=== PATIENT | female | born 1930 | race Caucasian/White ===

== ENCOUNTER 2017-02-20 12:35 | Inpatient (IN) ==
[2017-02-20] MEDS ORDERED: ZOFRAN IV ONE (13:09)
[2017-02-20] MEDS ORDERED: NS 1,000 ML IV ONE (13:09)
[2017-02-20 13:19] LABS: MANUAL DIFF NEEDED? NO
[2017-02-20 13:22] LABS: BASO% 0.5 % (0.0-0.8); EOS# 0.13 X1000 (0.0-0.7); EOS% 1.6 % (0.0-10.0); HEMATOCRIT 33.4 % (37.0-47.0); HEMOGLOBIN 10.4 g/dL (12.0-16.0); IMM GRAN# 0.03 X1000 (0.0-0.04); IMM GRAN% 0.4 % (0.0-0.5); LYMPH% 26.5 % (20.5-51.1); MCHC 31.1 g/dL (33-37); MCV 89.8 FL (81-99); MONO% 9.6 % (1.7-9.3); MPV 12.3 FL (7.4-10.4); NEUT% 61.4 % (42.2-75.2); PLT 245 X1000 (130-400); RBC 3.72 XMIL (4.2-5.4)
[2017-02-20 13:44] LABS: ALBUMIN 4.1 g/dL (3.5-5.0); CALCIUM 9.5 mg/dL (8.8-10.2); MAGNESIUM 2.3 mg/dL (1.5-2.7); POTASSIUM 3.7 mmol/L (3.5-5.1); TOTAL BILIRUBIN 0.35 mg/dL (0.20-1.00); TOTAL PROTEIN 7.3 g/dL (6.3-8.3)
--- NOTE | 2017-02-20 14:46 | Diag Imaging Result Doc PS360 ---
EXAM: ABDOMEN/PELVIS W/O CONTRAST INDICATION: N/V with abd pain COMPARISON: None. FINDINGS: There is subsegmental atelectasis and/or scarring at the lung bases. There is cardiomegaly. There are multiple calcified granulomata in the liver and the spleen. There has been a previous cholecystectomy. There is intrahepatic and extrahepatic biliary dilatation with the common bile duct measuring up to 1.3 cm in diameter. At least in part, this is due to age and postcholecystectomy status. Although questionable, there is a potential low dense mass near the head of the pancreas, perhaps arising from the uncinate process measuring up to 1.6 cm axially. Further evaluation is limited with no IV contrast. There are couple small cyst density foci arising from the left kidney. There is no hydronephrosis. There is impacted stool in the rectum. The diameter of the impacted rectum measures up to 7 cm. There is no evidence of bowel obstruction. There is uncomplicated diverticulosis coli. There has been a previous hysterectomy. There is extensive aortoiliac atherosclerotic calcification and atherosclerotic calcification involving the major branches of the aorta. Otherwise, no focal inflammatory changes, free abdominal gas, or free fluid is appreciated. The remainder of the solid viscera of the abdomen and pelvis and the remainder of the GI tract are essentially unremarkable. There are advanced degenerative changes throughout the spine. There has been a previous lumbar fusion. IMPRESSION: 1.Rectal fecal impaction. 2.Questionable low dense masslike focus near the head of the pancreas as described. 3.Intrahepatic and extrahepatic biliary dilatation, at least in part, this is due to postcholecystectomy status and age. It is difficult to completely exclude a component of obstruction. 4.Other incidental/nonacute findings detailed above. Electronically signed by Tong Lares 02/20/2017 2:44 PM
--- NOTE | 2017-02-20 15:35 | PROVIDER DOCUMENTATION ---
This chart was entered by Smitha Costello Scribe, acting as scribe for Lane Gomez MD. HPI-General Adult - General Chief Complaint: Weakness Stated Complaint: N/V WEAKNESS Time Seen by Provider: 02/20/17 12:42 Source: patient Allergies/Adverse Reactions: Patient Allergies Allergy/AdvReac Type Severity Reaction Status Date / Time acetaminophen [From Tylenol] Allergy Unknown Verified 01/13/14 11:14 meperidine HCl * Allergy Unknown Verified 01/13/14 11:14 [From Demerol] Penicillins Allergy Unknown Verified 01/13/14 11:15 simvastatin [From Zocor] Allergy Unknown Verified 01/13/14 11:16 Home Medications: Home Medication List Medication Instructions Recorded Confirmed Last Taken Type ATORVAstatin [Lipitor] 10 mg PO QHS 01/13/14 01/13/14 01/12/14 21:00 History Alprazolam [Xanax] 0.25 mg PO TID 01/13/14 01/13/14 01/13/14 06:00 History Aspirin [Aspirin EC] 81 mg PO DAILY 01/13/14 01/13/14 01/11/14 06:00 History Ca Cmb No.1/Vit D3/B-6/FA/B12 1 tab PO DAILY 01/13/14 01/13/14 01/13/14 06:00 History [Vitamin D3 1,000 Unit Tablet] Celecoxib [Celebrex] 100 mg PO DAILY 01/13/14 01/13/14 01/13/14 06:00 History Clopidogrel Bisulfate [Plavix] 75 mg PO DAILY 01/13/14 01/13/14 01/11/14 06:00 History Ezetimibe [Zetia] 10 mg PO DAILY 01/13/14 01/13/14 01/13/14 06:00 History Furosemide [Lasix] 40 mg PO QPM 01/13/14 01/13/14 01/12/14 17:00 History Furosemide [Lasix] 80 mg PO QAM 01/13/14 01/13/14 01/13/14 06:00 History Iron Fum & Ps Cmp/Vit C & B 1 cap PO DAILY 01/13/14 01/13/14 01/13/14 06:00 History [Integra Capsule] Lactulose 10 gm PO DAILY 05/05/2101/13/14 01/13/14 06:00 History Metoprolol Tartrate 25 mg PO BID 01/13/14 01/13/14 01/13/14 06:00 History Naproxen 500 mg PO DAILY 01/13/14 01/13/14 01/13/14 06:00 History Olmesartan/Hydrochlorothiazide 1 each PO PRN PRN 01/13/14 01/13/14 01/13/14 06: 00 History [Benicar Hct 40-25 mg Tablet] Palmer-3 Fatty Acids [Fish Oil] 1,000 mg PO DAILY 01/13/14 01/13/14 01/13/14 06: 00 History Pioglitazone [Actos] 30 mg PO DAILY 01/13/14 01/13/14 01/13/14 06:00 History Sitagliptin Phosphate [Januvia] 100 mg PO DAILY 01/13/14 01/13/14 01/13/14 06: 00 History - History of Present Illness -Gen Adult Nature of Presenting Problems: 86 y/o F presents to ED cc of N/V weakness. Pt states she started vomiting today. Pt reports having neck/back pain. Pt states her abd pain is a sore feeling. Pt denies CP. Pt is alert. Location of Pain/Injury: reports: generalized Pain Radiation: reports: no radiation Quality of Pain: reports: other (soreness) Severity: reports: mild Onset/Duration: reports: just prior to arrival Timing: reports: still present Context/Activities at Onset: reports: light activity Modifying Factors: improves with: nothing Associated Symptoms: reports: nausea, vomiting, other (abd soreness). denies: chest pain, diarrhea, fever/chills, shortness of breath Similar Symptoms Previously?: No Recently seen or treated by another doctor?: No Review of Systems - Adult - REVIEW OF SYSTEMS - ADULT Constitutional: denies: chills, fever Ears, Nose, Mouth & Throat: denies: ear pain, nose pain, loose teeth, throat pain Cardiovascular: denies: chest pain, palpitations Respiratory: denies: cough, pleurisy, shortness of breath, wheezing Gastrointestinal: reports: abdominal pain (soreness), nausea, vomiting. denies : diarrhea Musculoskeletal: denies: bone pain, back pain, joint swelling, muscle aches Neurological: denies: dizziness/vertigo, headache/migraines, seizure, slurred speech Past History - Adult - PAST MEDICAL HISTORY-ADULT Review of Records: reports: Old Records Reviewed, Nursing Assessment Review Cardiovascular: reports: HTN Endocrine/Immune: reports: Diabetes - PRIOR SURGERIES/PROCEDURES Surgical/Procedure History: reports: appendectomy - IMMUNIZATION STATUS Childhood Immunizations: See Nurse Assessment Flu Vaccine: See Nurse Assessment - SOCIAL HISTORY Smoking: denies, non-smoker Substance Use: none/never, denies Physical Exam-General - PHYSICAL EXAM-ADULT Initial Vital Signs Reviewed: Yes - CONSTITUTIONAL General Appearance: alert, no apparent distress - EYES Eyes: PERRL/EOMI, pink conjunctivae - HEAD, EARS, NOSE, MOUTH & THROAT HENMT: moist mucous membranes, normal ENT inspection - NECK Neck: non-tender, full range of motion - RESPIRATORY Respiratory: chest non-tender, lungs clear, normal breath sounds - CARDIOVASCULAR Cardiovascular: normal peripheral pulses, regular rate, rhythm, no edema - GASTROINTESTINAL (ABDOMEN) Abdominal Exam: normal bowel sounds, non tender, soft - MUSCULOSKELETAL Back Exam: normal inspection, no CVA tenderness, no vertebral tenderness Extremity: normal range of motion, non-tender - SKIN Integumentary: normal color, normal turgor, warm/dry - NEUROLOGIC Neurologic: grossly normal, no motor/sensory deficits - PSYCHIATRIC Psych/Mental Status: oriented x 3 Progress - PLAN OF CARE/RESULTS Progress/Plan/Lab Results: Vital Signs - 8 hr 02/20/17 12:51 Temperature 97.9 F Pulse Rate 65 Respiratory Rate 18 Blood Pressure 116/58 O2 Sat by Pulse Oximetry 99 Laboratory Results - last 24 hr 02/20/17 02/20/17 02/20/17 12:44 12:44 12:44 WBC 8.31 RBC 3.72 L Hgb 10.4 L Hct 33.4 L MCV 89.8 MCH 28.0 MCHC 31.1 L RDW Std Deviation 13.7 Plt Count 245 MPV 12.3 H Immature Gran % (Auto) 0.4 Neut % (Auto) 61.4 Lymph % (Auto) 26.5 Arroyo % (Auto) 9.6 H Eos % (Auto) 1.6 Baso % (Auto) 0.5 Immature Gran # (Auto) 0.03 Neut # (Auto) 5.11 Lymph # (Auto) 2.20 Arroyo # (Auto) 0.80 H Eos # (Auto) 0.13 Baso # (Auto) 0.04 Sodium 137 Potassium 3.7 Chloride 92 L Carbon Dioxide 27 Anion Gap 18 BUN 52 H Creatinine 2.6 H Estimated GFR/1.73 m2 17 BUN/Creatinine Ratio 20 Glucose 236 H Calculated Osmolality 296 Calcium 9.5 Magnesium 2.3 Total Bilirubin 0.35 AST 26 ALT 15 Alkaline Phosphatase 102 Troponin T Emv-P-Nhbsozyfjhf Pept 1571 H Total Protein 7.3 Albumin 4.1 Globulin 3.2 Albumin/Globulin Ratio 1.3 Amylase 115 Lipase 127 H 02/20/17 12:44 WBC RBC Hgb Hct MCV MCH MCHC RDW Std Deviation Plt Count MPV Immature Gran % (Auto) Neut % (Auto) Lymph % (Auto) Arroyo % (Auto) Eos % (Auto) Baso % (Auto) Immature Gran # (Auto) Neut # (Auto) Lymph # (Auto) Arroyo # (Auto) Eos # (Auto) Baso # (Auto) Sodium Potassium Chloride Carbon Dioxide Anion Gap BUN Creatinine Estimated GFR/1.73 m2 BUN/Creatinine Ratio Glucose Calculated Osmolality Calcium Magnesium Total Bilirubin AST ALT Alkaline Phosphatase Troponin T 0.011 Qum-S-Uscfcbdpoiy Pept Total Protein Albumin Globulin Albumin/Globulin Ratio Amylase Lipase Orders Category Date Time Status Saline Loc DIRECTED Care 02/20/17 13:09 Active NPO Diet 02/20/17 13:09 Active CHEST-PORTABLE [RAD] Stat Exams 02/20/17 13:[address] ABD/PELVIS W/ IV CONT ONLY [CT] Stat Exams 02/20/17 13:13 Ordered AMYLASE [CHEM] Stat Lab 02/20/17 12:44 Completed CBC WITH ELECTRONIC DIFF [HEME] Stat Lab 02/20/17 12:44 Completed COMPREHENSIVE METABOLIC PANEL [CHEM] Stat Lab 02/20/17 12:44 Completed LIPASE [CHEM] Stat Lab 02/20/17 12:44 Completed MAGNESIUM [CHEM] Stat Lab 02/20/17 12:44 Completed PRO B-NATRIURETIC PEPTIDE Stat Lab 02/20/17 12:44 Completed TROPONIN T Stat Lab 02/20/17 12:44 Completed URINALYSIS W/POSS RFLX CULT-1 [URINALYSIS] Stat Lab 02/20/17 13:09 Uncollected 0.9% Sodium Chloride Inj [Ns] 1,000 ml Med 02/20/17 13:09 Active IV 999 mls/hr Ondansetron [Zofran] Med 02/20/17 13:09 Discontinued 4 mg IV NOW ONE PLAN: LABS, CHEST, NAUSEA, MONITOR PT Result Diagrams: 02/20/17 12:44 02/20/17 12:44 - XRAY 1 XRAY: Bilateral XRAY Study: Chest Impression: Normal XRAY Interpretation: nad - (er doc) - CT/MRI 1 CT Study: Abdomen, Pelvis Impression: Abnormal (Rectal Impaction. Questionable low dense masslike focus near the head of the pancreas as described. Intrhepatic and extrahepatic biliary dislocation, at least in part , this is due to postcholecystectomy status and age. It is difficult to completly exclude a component of obsturction. Other incidental/nonacute findings detailed aboved.) CT Results: see impression-(radiologist) - CONSULTS/PCP/HOSPITALIST Notification #1 *Consult/PCP/Hospitalist*: Konstantin/Hospitalist Time Discussed: 15:34 Consult Disposition: Will see in ED, Admit Departure - Departure Date of Disposition Decision: 02/20/17 Time of Disposition Decision: 15:34 DIAGNOSIS: Abdominal pain, Renal failure, Pancreatic mass Disposition: ADMITTED INPATIENT 09 Certified Medical Emergency: Emergent Condition: Stable Referrals and Follow-Ups: Liu Baldwin MD [Primary Care Provider] - - Critical Care Note This patient required my direct & personal management of CC.: No This chart was documented by the indicated scribe, (Smitha Costello Scribe) and accurately reflects the services I performed and decisions made by me, Lane Gomez MD, as attested by the provider's signature.
--- NOTE | 2017-02-20 16:03 | Diag Imaging Result Doc PS360 ---
EXAM: CHEST-PORTABLE INDICATION: cough TECHNIQUE: One view COMPARISON: None. FINDINGS: There is biapical chronic appearing pleural thickening. The lungs are grossly clear, otherwise. There is mild elevation of the right hemidiaphragm. There is no discrete pleural fluid collection or pneumothorax. There is cardiomegaly. There is a left-sided transvenous pacemaker with the leads in the expected position. The central vasculature is unremarkable. IMPRESSION: Cardiomegaly and biapical mild chronic appearing pleural thickening. No definite acute pathology by plain radiograph. Electronically signed by Tong Lares 02/20/2017 4:01 PM
[2017-02-20 16:14] LABS: URINE SOURCE CLEAN CATCH
[2017-02-20 16:26] LABS: BILIRUBIN URINE NEGATIVE (NEGATIVE); BLOOD URINE TRACE-INTACT (NEGATIVE); CLARITY CLEAR (CLEAR); COLOR YELLOW; GLUCOSE URINE NEGATIVE (NEGATIVE); LEUKOCYTES URINE MODERATE (NEGATIVE); NITRITE URINE NEGATIVE (NEGATIVE); PROTEIN URINE 100 mg/dL (NEGATIVE); SP GRAVITY URINE 1.015; UROBILINOGEN URINE 0.2 EU/dL (0.2-1.0)
[2017-02-20 16:43] LABS: URINE EPITHELIAL CELLS <10 /HPF (<10); URINE RBC <10 /HPF (<10); URINE WBC <10 /HPF (<10)
--- NOTE | 2017-02-20 18:30 | HISTORY AND PHYSICAL ---
TURBINATED BONE GRINDER: Dr. Alicea in [place], [place]. PCP: Dr. Baldwin in [place], [place]. CHIEF COMPLAINT: Abdominal pain. HISTORY OF PRESENT ILLNESS: Mrs. Arias is a pleasant 86-year-old female with multiple medical problems who presents to the ER today with fairly acute onset of abdominal pain, nausea, and vomiting that began around noon. The patient describes acute left upper quadrant pain followed by multiple episodes of vomiting which prompted an ER visit. The pain is described as sharp and constant, radiates to the back. She denies any hematemesis. She denies diarrhea. She denies hematochezia or melena. She denies fever, chills cough or congestion. She denies any unintentional weight loss. When she came to the ER she had a CT of the abdomen and pelvis done which showed rectal fecal impaction, questionable low dense masslike focus near the head of the pancreas. There was also intrahepatic and extrahepatic biliary dilatation which is at least in part due to postcholecystectomy status and age. However it was difficult to exclude a component of obstruction. Laboratory data was obtained . She is mildly anemic with renal insufficiency and she had a lipase of 127. She is now going to be admitted for further treatment and evaluation. PAST MEDICAL HISTORY: 1. CKD stage [address] Couch currently not on hemodialysis. 2. Anemia of chronic disease. 3. Hypertension. 4. Left carotid bruit. 5. Peripheral vascular disease. 6. Diastolic dysfunction. 7. Diabetes mellitus. 8. Hyperlipidemia. 9. Renal artery stenosis status post renal artery stenting. 10. Carotid artery disease status post carotid endarterectomy. 11. Aortic stenosis. 12. Status post pacemaker placement arrhythmia unknown. SURGICAL HISTORY: She has had a pacemaker placement, renal artery stenting, cardiac catheterization, carotid endarterectomy on the right, appendectomy, lumbar laminectomy, cholecystectomy, cataract extraction, insertion of superficial femoral artery stent. SOCIAL HISTORY: Patient denies tobacco, alcohol or drug use. She is , lives with family who is at the bedside. FAMILY HISTORY: Noncontributory. REVIEW OF SYSTEMS: Fourteen-point review of systems obtained and found to be negative with the exception of the HPI. ALLERGIES: Meperidine, penicillin and simvastatin. CURRENT MEDICATIONS: Are being compiled. PHYSICAL EXAMINATION: VITAL SIGNS: Blood pressure is 109/43, heart rate 63, respiratory rate 20, O2 saturation 95% on room air. GENERAL: This is a pleasant elderly female lying in hospital bed. No acute distress. NEUROLOGIC: The patient is disoriented but follows commands without focal deficits. HEENT: Head is atraumatic and normocephalic. Pupils are equal, round, and reactive to light. Oral mucosa is a bit dry. Trachea is midline. No JVD. CHEST: Clear to auscultation bilaterally. CV: Regular rate and rhythm. S1-S2 is noted. There is a 2-3/6 systolic ejection murmur noted. GI: Significant left upper quadrant tenderness to palpation but belly is nondistended. Bowel sounds are hypoactive. EXTREMITIES: With no edema, clubbing or cyanosis. Pulses are diminished but palpable bilaterally. DIAGNOSTIC DATA: Abdomen pelvis CT please see HPI. Chest x-ray shows cardiomegaly and apical scarring but nothing acute. WBC 8.31, hemoglobin 10.4, hematocrit 33.4, platelet count 245,000. Sodium 137, potassium 3.7, chloride 92, CO2 27, anion gap 18, BUN 52, creatinine 2.6, glucose is 236, calcium 9.5, magnesium 2.3, bilirubin 0.35, AST 26, ALT 15, alkaline phosphatase 102, proBNP 1571, albumin 4.1, amylase 115, lipase 127. UA is negative. ASSESSMENT AND PLAN: 1. Abdominal pain: Likely secondary to her pancreatitis/pancreatic mass. Given the ductal dilatation we are going to consult GI. Will work her up for pancreatic malignancy with a CA 19-9, CEA and AFP. We will order bowel rest, IV fluids, pain medication and antiemetics. 2. Altered sensorium: The patient is disoriented which family states is unusual for her. She follows commands without focal deficits but we are still going to go ahead and get a CT of the head. Would consider dementia as the diagnosis as the family does state that occasionally she is been slipping with short-term memory. 3. Diabetes mellitus: Will order a hemoglobin A1c and pattern sugars and sliding scale insulin. 4. Congestive heart failure: Exact type unknown. We will try and obtain records from Dr. Alicea' office. She is not in any type of exacerbation at this time. Will continue to monitor her on telemetry. Follow strict I's and O's and daily weights. Continue appropriate home medications once they have been reconciled. 5. 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 Will monitor daily. 6. Status post pacemaker: EKG shows sinus rhythm. Patient denies any overt chest pain. Will monitor her telemetry closely. 7. Vasculopathy: Patient has peripheral vascular disease as well as renal artery stenosis and carotid artery disease. We will continue her antiplatelets once they have been reconciled. 8. Anemia: Likely chronic disease related. We will check iron studies and treat accordingly. 9. Deep vein thrombosis prophylaxis will be provided with heparin given her renal function. Further recommendations to follow. Dictated by ALAN Edmonds for Guillaume Victoria MD cc: MD Guillaume Mendoza MD MTDD
[2017-02-20] MEDS: NS 1,000 ML IV SCH (18:37)
--- NOTE | 2017-02-20 18:51 | Diag Imaging Result Doc PS360 ---
EXAM: HEAD W/O CONTRAST INDICATION: ams COMPARISON: None. FINDINGS: There is patchy low attenuation in the periventricular and subcortical white matter suggesting moderate microangiopathy. There appears to be a chronic lacunar infarct involving the left, and possibly the right, cerebellar hemispheres. There is no definite acute infarct given the limited sensitivity of CT versus MRI. There is no discrete intracranial mass, mass effect, or intracranial hemorrhage. The surrounding soft tissues and bony structures are essentially unremarkable. IMPRESSION: Chronic appearing changes as described. No evidence of acute intracranial pathology. Electronically signed by Tong Lares 02/20/2017 6:49 PM
[2017-02-20] MEDS: HUMALOG SUBQ SCH (20:13)
[2017-02-20] MEDS: HEPARIN SUBQ SCH (20:17)
[2017-02-20] MEDS ORDERED: DULCOLAX PR ONE (21:05)
[2017-02-20] MEDS: PROTONIX IV SCH (22:05)
[2017-02-20] MEDS: MORPHINE IV PRN (23:16)
[2017-02-21] MEDS: MORPHINE IV PRN (03:22)
[2017-02-21] MEDS: HUMALOG SUBQ SCH ×4 (06:01→21:20)
[2017-02-21 06:37] LABS: HEMATOCRIT 29.9 % (37.0-47.0); HEMOGLOBIN 9.3 g/dL (12.0-16.0); MCH 28.7 PG (27-31); MCHC 31.1 g/dL (33-37); MCV 92.3 FL (81-99); MPV 11.6 FL (7.4-10.4); RBC 3.24 XMIL (4.2-5.4)
[2017-02-21 06:54] LABS: HEMOGLOBIN A1C 6.2 % (4.8-6.0)
[2017-02-21] MEDS: NS 1,000 ML IV SCH (06:57)
[2017-02-21 07:12] LABS: AGAP 14; ALBUMIN 3.6 g/dL (3.5-5.0); ALKALINE PHOSPHATASE 88 U/L (32-104); BUN 46 mg/dL (8-22); CALCIUM 8.8 mg/dL (8.8-10.2); CHLORIDE 105 mmol/L (98-107); COSMO 302; GOT 22 U/L (10-30); GPT 14 U/L (10-36); HDL 35 mg/dL (45-65); IRON SATURATION 22 %; LDL 56 mg/dL; LIPASE 72 U/L (13-60); POTASSIUM 3.3 mmol/L (3.5-5.1); SODIUM 146 mmol/L (136-145); TCO2 27 mmol/L (25-35); TIBC 248 ug/dL; TOTAL BILIRUBIN 0.26 mg/dL (0.20-1.00); TOTAL IRON 55 ug/dL (49-151); TOTAL PROTEIN 6.4 g/dL (6.3-8.3); TRIGLYCERIDES 133 mg/dL (35-135); UNBOUND IRON 193 ug/dL (112-346); VLDL 27 mg/dL
[2017-02-21] MEDS: ZOLOFT PO SCH (10:19)
[2017-02-21] MEDS: PLAVIX PO SCH (10:19)
[2017-02-21] MEDS: COREG PO SCH ×2 (10:19→21:19)
[2017-02-21] MEDS: HEPARIN SUBQ SCH ×2 (10:19→21:19)
[2017-02-21] MEDS: MIRALAX PO SCH ×2 (10:20→21:19)
[2017-02-21] MEDS: D5 1/2 NS 1,000 ML IV SCH ×2 (10:25→21:28)
[2017-02-21] MEDS: XANAX PO SCH ×3 (10:33→17:06)
[2017-02-21] MEDS: POTASSIUM CHLORIDE 20 MEQ/SWI 20 MEQ/100 ML IVPB IV SCH ×2 (12:16→17:04)
[2017-02-21] MEDS: PROTONIX IV SCH ×2 (12:21→21:19)
[2017-02-21] MEDS: SODIUM CHLORIDE 0.9% INJ SCH ×2 (12:21→21:19)
--- NOTE | 2017-02-21 14:02 | Diag Imaging Result Doc PS360 ---
EXAM: KUB ABDOMEN INDICATION: possible fecal impaction TECHNIQUE: One view COMPARISON: None. FINDINGS: There are unremarkable bowel gas and stool patterns. There is no obstructive bowel pattern. The rectal fecal impaction seen on the previous CT has either resolved or is not as severe. There is no evidence of large volume free abdominal gas. There are calcific densities projecting over the pelvis suggesting phleboliths. There are calcified granulomata in the spleen and there are bulky calcifications in the liver consistent with known calcified metastatic lesions. There are degenerative changes involving the spine. IMPRESSION: 1.Bulky calcifications projecting of the liver consistent with known calcified metastatic disease. 2.No definite rectal fecal impaction is identified on this plain radiograph. Electronically signed by Tong Lares 02/21/2017 2:00 PM
--- NOTE | 2017-02-21 16:02 | PROGRESS NOTE ---
DATE: 02/21/2017 SUBJECTIVE: The patient is resting comfortably in bed. She states that she is no longer feeling nauseous. OBJECTIVE: Vital Signs: Temperature 98.3 degrees, blood pressure 187/60, heart rate 74, respirations 14, and O2 saturation is 92% on room air. General: This is an elderly female, lying in bed in no acute distress. Head: Normocephalic, atraumatic. Heart: S1 and S2 normal. Regular rate and rhythm. Lungs: Clear to auscultation bilaterally. No wheezing. No rales. No rhonchi. Abdomen: Positive bowel sounds. Soft, nontender, nondistended. Extremities: No edema. No cyanosis. No calf tenderness. Neurologic: The patient is alert and oriented x3. No focal neurologic deficits noted. LABORATORY: White blood cell count 8, hemoglobin 9.3, hematocrit 29, platelets 207,000. Sodium 146, potassium 3.3, chloride 105, CO2 of 27, BUN 46, creatinine 2.1, glucose 100. A1c 6.2. ASSESSMENT AND PLAN: 1. Possible pancreatic mass with biliary dilation. The patient has a pacemaker, so we are unable to do an MRCP. The patient's lipase is a little bit improved today. The patient denies having nausea. We will await further recommendations from the account services coordinator. 2. Hypertension. The patient is back on her home antihypertensives. We will continue on this for now. 3. Hypokalemia. Will replace the patient's potassium. 4. Hypernatremia. We will start the patient on D5 half normal saline. 5. Diabetes mellitus, type 2. Continue on Humalog. 6. Anxiety disorder. Continue on Xanax. 7. Status post pacemaker. Aware. 8. Anemia. We will continue to monitor the patient's hemoglobin and hematocrit closely. 9. Stage 4 chronic kidney disease. Stable. 10. Gastrointestinal prophylaxis. Continue on IV Protonix. cc: Radha Kelly MD
--- NOTE | 2017-02-21 16:18 | CONSULTATION ---
DATE OF CONSULTATION: 02/20/2017 REFERRING PHYSICIAN: Dr. Radha Kelly M.D. PRIMARY CARE PROVIDER: Dr. Liu Baldwin M.D. in [place], [place]. PRIMARY ASSOCIATE ENGINEER: Dr. Durga Alicea M.D. in [place], [place]. INDICATION FOR CONSULTATION: 1. Nausea with vomiting. 2. Abdominal pain. 3. Mass in the head of the pancreas on CT scan. 4. Intra and extrahepatic biliary duct dilation on CT scan. 5. Fecal impaction. HISTORY OF PRESENT ILLNESS: The patient is an 86-year-old white female with multiple medical concerns. She states that she was doing well but awakened with the acute onset of left upper quadrant epigastric pain that was followed by nausea with vomiting. She presented to the emergency room after several episodes of vomiting followed by a pain that was unrelenting. She describes it as sharp and constant with radiation from the left upper quadrant epigastrium into her back. She denies fever, chills, diarrhea, hematochezia, melena, chills, cough or congestion. She notes that her weight has been relatively stable. She does note mild shortness of breath when she had the pain. She has a history of chronic heartburn which has been mild and only affects her 2-3 days out of the week. She typically uses Tums as needed. In the emergency room, she underwent a CT scan of the abdomen and pelvis that was remarkable for low dense mass like focus in the head of the pancreas, fecal impaction, and ductal dilation in the liver. It is thought that part of the dilation was accounted for due to the patient's history of having undergone a cholecystectomy. Her serum chemistries reveal a mildly elevated lipase to 127. She was also noted to have renal insufficiency and mild anemia. She was admitted for further evaluation. PAST MEDICAL HISTORY: 1. Chronic kidney disease stage 3 to 4. She is currently followed by Dr. Couch and is not yet on hemodialysis. 2. Anemia of chronic disease. 3. Hypertension. 4. Left carotid bruit. 5. Peripheral vascular disease. 6. Diastolic dysfunction of the heart. 7. Diabetes mellitus. 8. Hyperlipidemia. 9. Renal artery stenosis status post renal artery stenting. 10. Carotid artery disease status post carotid endarterectomy. 11. Aortic stenosis. 12. Pacemaker placement. PAST SURGICAL HISTORY: 1. Cardiac pacemaker placement. 2. Renal artery stenting. 3. Cardiac catheterization. 4. Carotid endarterectomy on the right. 5. Appendectomy. 6. Lumbar laminectomy. 7. Cholecystectomy. 8. Cataract extraction. 9. Super femoral artery stent. SOCIAL HISTORY: Negative for alcohol, tobacco or recreational drug use. She is and lives with family. FAMILY HISTORY: Remarkable in that she is one of 12 children. She was born with 9 sisters and 2 brothers. She notes that 1 sister from acute pancreatitis and another sister of pancreatic cancer. There are other cancers in the family but she was unable to recall the cause of for her other sisters. REVIEW OF SYSTEMS: Remarkable for epigastric and right upper quadrant pain. She notes that the pain was in the left upper quadrant earlier today. The nausea and vomiting has resolved since admission. She is no longer short of breath and is resting comfortably. She states that she has a history of chronic constipation but reports a good bowel movement on 2016. She does note that she requires a laxative on a regular basis as she no longer has spontaneous bowel movements. MEDICATION ALLERGIES: 1. Meperidine. 2. Penicillin. 3. Simvastatin. HOME MEDICATIONS: 1. Glipizide. 2. Zoloft. 3. Norvasc. 4. Tradjenta. 5. Coreg. 6. Lasix. 7. Tylenol #3. 8. Reglan. 9. Restoril. 10. Macrobid. 11. Integra. 12. Zetia. 13. Plavix. 14. Vitamin D3. 15. Aspirin 81 mg. 16. Xanax. 17. Lipitor. On exam, her blood pressure 172/53, pulse 68, respiration 18, temperature of 97.7 degrees.HEENT: Negative for jaundice. Conjunctivae are pale. Her sclerae are clear. Oropharyngeal mucosa membranes are dry. Pulmonary Exam: Lungs are clear anteriorly. There is slight decreased breath sounds posteriorly. Cardiovascular: She has a regular rate and rhythm with a 2 to 3/6 systolic murmur greatest at the left sternal border. Abdomen: On abdominal exam, she has normoactive bowel sounds. The abdomen is soft with left upper quadrant, epigastric and right upper quadrant tenderness. The tenderness is greatest in the epigastrium at the time of my exam. There is no rebound or guarding. There is possibly an abdominal bruit. Extremities: Bilaterally are negative for cyanosis, clubbing, or edema. OBJECTIVE DATA: Reveals a hemoglobin of 10.4 with hematocrit of 33.3, and a white count of 8.31. She has 245,000 platelets. Sodium is 137, potassium 3.7, chloride 92, CO2 27, BUN 52, creatinine 2.6 with a glucose of 236. Calcium is 9.5, magnesium 2.3, total bilirubin 0.35 , AST 26, ALT 15, alkaline phosphatase 102, total protein 7.3, and albumin 4.1. Her amylase is 115 with a lipase of 227, BNP 1571, troponin 0.0011, CEA of 12, CK less than 24, CRP 1.23 with a sedimentation rate of 58. IMPRESSION: 1. Nausea with vomiting. 2. Abdominal pain. 3. Mass in the head of the pancreas. 4. Intra and extrahepatic ductal dilation. 5. Fecal impaction on CT. 6. Elevated CEA. RECOMMENDATION: 1. The patient has elevated CEA and a family history of pancreatic cancer. Please check a CA-19- 9. 2. I recommend an MRI of the pancreas on Thursday if our MRI allows for medical devices. Otherwise, I would schedule the patient for an outpatient EUS with Dr. Kunal Newman M.D. at [place]. If there is indeed a mass in this setting, I would consult Dr. Grace Portillo per the family's request. 3. With regard to the fecal impaction, I would administer Dulcolax suppository tonight. I would also begin MiraLAX 17 g p.o. b.i.d. until the fecal impaction resolves. 4. Please check a KUB in the morning to reassess the status of the fecal impaction. 5. The patient has nausea with vomiting. I would begin Protonix 40 mg IV q.12 hours. 6. We will determine if endoscopic intervention is warranted based on the results of the MRI and CA-19-9 as well as her clinical symptoms after the impaction resolves. 7. Additional recommendations to follow based on her clinical course. cc: Phyllis Singh M.D. Ce Ramirez M.D. Mir K. Varquez, M.D. MTDD
--- NOTE | 2017-02-21 17:25 | PROGRESS NOTE ---
DATE: 02/21/2017 SUBJECTIVE: The patient states that her nausea with vomiting has resolved after she had a large bowel movement overnight. The KUB shows resolution of the fecal impaction. The patient states that she is hungry. She tolerated clear liquid lunch and states that she is ready for solid food. She has a cardiac pacemaker and is currently unable to have an MRCP to evaluate the pancreatic lesion. Today, she notes the presence of bony pain in her ribs and in her upper back. According to her son and [id number], who were at bedside, she has a history of osteopenia, but has never complained of bony pain. She, overall, thinks that she is doing considerably better today. OBJECTIVE: On exam, her blood pressure is 197/62, pulse is 70, respirations 18, and temperature of 97.7 degrees. Objective data is remarkable for hemoglobin of 9.3 with hematocrit of 29.9 and a white count of 8.05. She has 207,000 platelets. Sodium is 146, potassium 3.3, chloride 105, CO2 of 27, BUN 46, creatinine 2.1, with a glucose 193. Calcium is 8.8, phosphorus 3.6, total bilirubin 0.26, AST 22, ALT 14, alkaline phosphatase 88, total protein 6.4, and albumin 3.6. Her hemoglobin A1c is 6.2. Her CK is 21 with a troponin less than 0.010. Triglycerides are 133. Lipase is 72. B12 is 1060 with a folate of 39.3 and a TSH of 1.27. KUB shows a nonspecific bowel gas pattern. IMPRESSIONS: 1. Nausea with vomiting, resolved. 2. Abdominal pain, resolved. 3. Fecal impaction on CT, resolved. 4. Mass in the head of the pancreas. 5. Intrahepatic and extrahepatic ductal dilation. 6. Elevated CEA. 7. Bony pain. RECOMMENDATION: 1. In light of the fact that the patient is unable to have an MRCP and complains of bony pain, it would be reasonable to check a bone scan on Thursday. 2. I would recommend an EUS by Dr. Newman at [facility]. I will defer on performing an EGD, as she will need an EGD with EUS to assess the pancreatic lesion. 3. Await the results of the CA 19-9, which is pending. 4. I would advance the diet as tolerated. 5. Continue Protonix 40 mg IV q.12 hours until such time that she is tolerating a diet, and then I would transition to Prilosec 40 mg once daily. 6. Additional recommendations to follow based on her clinical course. cc: MD Radha Daniels MD Henry S Beeler, MD Mir K. Varquez, MD
[2017-02-21] MEDS: RESTORIL PO SCH (21:19)
[2017-02-21] MEDS: LIPITOR PO SCH (21:19)
[2017-02-21] MEDS: NORVASC PO SCH (21:19)
[2017-02-21] MEDS: APRESOLINE PO SCH (21:20)
[2017-02-22] MEDS: APRESOLINE PO SCH ×3 (04:55→21:24)
[2017-02-22] MEDS: HUMALOG SUBQ SCH ×4 (06:03→21:25)
[2017-02-22 06:20] LABS: HEMATOCRIT 29.5 % (37.0-47.0); HEMOGLOBIN 9.1 g/dL (12.0-16.0); MCH 28.6 PG (27-31); MCHC 30.8 g/dL (33-37); MCV 92.8 FL (81-99); MPV 11.6 FL (7.4-10.4); RBC 3.18 XMIL (4.2-5.4)
[2017-02-22 07:46] LABS: ALBUMIN 3.2 g/dL (3.5-5.0); POTASSIUM 3.7 mmol/L (3.5-5.1); TOTAL BILIRUBIN 0.3 mg/dL (0.20-1.00)
[2017-02-22] MEDS: HEPARIN SUBQ SCH ×2 (10:35→21:24)
[2017-02-22] MEDS: ZOLOFT PO SCH (10:35)
[2017-02-22] MEDS: COREG PO SCH ×2 (10:35→21:24)
[2017-02-22] MEDS: PLAVIX PO SCH (10:35)
[2017-02-22] MEDS: PROTONIX IV SCH ×2 (10:35→21:25)
[2017-02-22] MEDS: XANAX PO SCH ×3 (10:36→16:41)
[2017-02-22] MEDS: SODIUM CHLORIDE 0.9% INJ SCH ×2 (10:36→21:25)
[2017-02-22] MEDS: MIRALAX PO SCH ×2 (10:36→21:23)
[2017-02-22] MEDS: D5 1/2 NS 1,000 ML IV SCH (10:42)
[2017-02-22] MEDS: D5W 1,000 ML IV SCH ×2 (12:52→23:16)
--- NOTE | 2017-02-22 17:26 | PROGRESS NOTE ---
DATE: 02/22/2017 SUBJECTIVE: The patient states that her abdominal pain has improved. She does complain of left- sided rib pain as well as back pain. She was able to tolerate a liquid diet without any difficulty. OBJECTIVE: Vital Signs: Temperature 97.8 degrees, blood pressure 159/88, heart rate 63, respirations 16, O2 saturations 94% on room air. General: This is an elderly female lying in bed in no acute distress. Head: Normocephalic, atraumatic. Heart: S1, S2. Normal. Regular rate and rhythm. Lungs: Clear to auscultation bilaterally. No wheezes, no rales. No rhonchi. Abdomen: Positive bowel sounds. Soft, nontender, nondistended. Extremities: No edema. No cyanosis. No calf tenderness. Neurologic: The patient is alert and oriented x3. LAB: White blood cell count 6.4, hemoglobin 9, hematocrit 29, platelets 189,000. Sodium 146, potassium 3.7, chloride 110, CO2 24, BUN 29, creatinine 1.5, glucose 150, calcium 9, albumin 3.2. ASSESSMENT AND PLAN: 1. Fecal impaction. Resolved. Will start the patient on MiraLAX. 2. Pancreatic mass. The patient will likely need to follow up with Dr. Newman at [facility] as outpatient to undergo an EGD with EUS to assess the pancreatic lesion as recommended by Dr. Singh. 3. Rib pain with back pain. A bone scan has been ordered to be done tomorrow to rule out the possibility of metastatic disease. 4. Hypertension. Continue on the current antihypertensive therapy. 5. Anemia. The patient's hemoglobin and hematocrit is stable. 6. Acute kidney injury. Improved. 7. Anxiety disorder. Continue on Xanax. 8. Deep vein thrombosis prophylaxis. Continue on heparin 5000 units subcutaneous every 12 hours. 9. Physical therapy has been consulted. 10. Disposition. Will consult secondary social studies teacher for discharge planning. cc: Radha Kelly MD
--- NOTE | 2017-02-22 17:27 | PROGRESS NOTE ---
DATE: 02/22/2017 SUBJECTIVE: The patient states that the nausea with vomiting has resolved. She feels significantly better. She continues to have left rib pain. She notes multiple good bowel movements today, and feels that the abdominal pressure is resolving. OBJECTIVE: Vital Signs: On exam, her blood pressure is 159/88, pulse 63, respiration 16, temperature of 97.8 degrees. Pulmonary: Her lungs are clear to auscultation with normal expiratory effort. She has tenderness in the left anterior chest wall over multiple ribs. Cardiovascular: She has a regular rate and rhythm with a 2-3/6 systolic murmur at the left sternal border. Abdominal exam: She has normoactive bowel sounds. The abdomen is soft, with minimal abdominal tenderness. There is no rebound or guarding. OBJECTIVE DATA: Reveals a hemoglobin of 9.1, with hematocrit of 29.5, and a white count of 6.42. She has 189,000 platelets. Sodium is 146, potassium 3.7, chloride 110, CO2 24, BUN 29, creatinine 1.5, with a glucose of 150. Calcium is 9.0, total bilirubin 0.30, AST 22, ALT 13, alkaline phosphatase 83, total protein 6.0, with an albumin of 3.2. Her lipase is significantly better at 33 today. IMPRESSION: 1. Nausea with vomiting, resolved. 2. Fecal impaction, resolved. 3. Mass in the head of the pancreas. 4. Intrahepatic and extrahepatic ductal dilation. 5. Elevated CEA. 6. Bony pain. RECOMMENDATION: 1. Continue current management. 2. We will check a bone scan tomorrow to further evaluate the rib pain. 3. A CA-19-9 tumor marker for pancreatic cancer is pending. 4. She may benefit from an outpatient EUS to assess the pancreas. Additional testing will be based on the CA-19-9, and other test results. 5. Continue Protonix for now. I would transition to oral Prilosec when she is tolerating a regular diet. cc: MD Liu Daniels MD Katherine Takundwa, MD
[2017-02-22] MEDS: LIPITOR PO SCH (21:24)
[2017-02-22] MEDS: NORVASC PO SCH (21:24)
[2017-02-22] MEDS: RESTORIL PO SCH (22:11)
[2017-02-22] MEDS: MORPHINE IV PRN (23:15)
[2017-02-22] MEDS: ZOFRAN IV PRN (23:15)
[2017-02-23] MEDS: D5W 1,000 ML IV SCH (01:56)
[2017-02-23] MEDS: HUMALOG SUBQ SCH ×4 (06:11→21:32)
[2017-02-23] MEDS: APRESOLINE PO SCH ×3 (06:11→21:36)
[2017-02-23 06:24] LABS: HEMATOCRIT 28.1 % (37.0-47.0); HEMOGLOBIN 8.7 g/dL (12.0-16.0); MCH 28.5 PG (27-31); MCV 92.1 FL (81-99); MPV 11.6 FL (7.4-10.4); RBC 3.05 XMIL (4.2-5.4)
[2017-02-23 07:11] LABS: CALCIUM 8.8 mg/dL (8.8-10.2); POTASSIUM 3.5 mmol/L (3.5-5.1); TOTAL BILIRUBIN 0.29 mg/dL (0.20-1.00); TOTAL PROTEIN 5.7 g/dL (6.3-8.3)
[2017-02-23] MEDS: HEPARIN SUBQ SCH ×2 (08:50→21:34)
[2017-02-23] MEDS: XANAX PO SCH ×3 (08:50→18:03)
[2017-02-23] MEDS: COREG PO SCH ×2 (08:50→21:35)
[2017-02-23] MEDS: PROTONIX IV SCH ×2 (08:50→21:35)
[2017-02-23] MEDS: PLAVIX PO SCH (08:50)
[2017-02-23] MEDS: ZOLOFT PO SCH (08:50)
[2017-02-23] MEDS: SODIUM CHLORIDE 0.9% INJ SCH ×2 (08:50→21:35)
[2017-02-23] MEDS: MIRALAX PO SCH ×2 (08:52→21:33)
[2017-02-23] MEDS: MORPHINE IV PRN (09:00)
[2017-02-23] MEDS: ZOFRAN IV PRN (09:00)
--- NOTE | 2017-02-23 12:43 | PROGRESS NOTE ---
DATE: 02/23/2017 SUBJECTIVE: The patient is resting comfortably in bed. She states that her abdominal pain has improved. She continues to complain of left-sided rib pain and back pain. OBJECTIVE: Vital Signs: Temperature 98 degrees, blood pressure 152/53, heart rate 66 respirations 18, O2 saturations 91% on room air. General: This is an elderly female, lying in bed, in no acute distress. Head: Normocephalic, atraumatic. Heart: S1, S2. Normal. Regular rate and rhythm. Lungs: Clear to auscultation bilaterally. Abdomen: Positive bowel sounds. Soft, nontender, nondistended. Extremities: No edema. No cyanosis. No calf tenderness. Neurologic: The patient is alert and oriented x3. LABS: White blood cell count 6.6, hemoglobin 8.7, hematocrit 28, platelets 180,000, sodium 138, potassium 3.5, chloride 103, CO2 27, BUN 25, creatinine 1.6. ASSESSMENT AND PLAN: 1. Fecal impaction, resolved. 2. Pancreatic mass. The patient will need a followup appointment with Dr. Newman at [facility] to undergo an EUS with the EGD. The CA-19-9 is elevated. 3. Rib pain with back pain. The patient is scheduled to undergo a bone scan today. 4. Hypertension. Continue on the current antihypertensive therapy. 5. Acute kidney injury, stable. 6. Anxiety disorder. Continue on Xanax. 7. Deep vein thrombosis prophylaxis. Continue on heparin 5000 units subcutaneous every 12 hours. 8. Continue with physical therapy. cc: Radha Kelly MD
--- NOTE | 2017-02-23 13:50 | Diag Imaging Result Doc PS360 ---
BONE SCAN, TOTAL BODY - 02/23/2017 INDICATION: Possible metastatic disease TECHNIQUE: 31.6 mCi of MDP was administered COMPARISON: CT abdomen pelvis 02/20/2017 FINDINGS: The patient spine is curved. There is asymmetric activity at the anterior left iliac wing. On the CT from 02/20/2017 this appears degenerative. There is also some degenerative uptake from the surgery of the lower lumbar spine. No suspicious area of activity. Soft tissue uptake is clear. IMPRESSION: No specific, suspicious abnormalities. Electronically signed by Heber Doll 02/23/2017 1:48 PM
[2017-02-23] MEDS: NORVASC PO SCH (21:36)
[2017-02-23] MEDS: LIPITOR PO SCH (21:36)
[2017-02-23] MEDS: RESTORIL PO SCH (21:36)
--- NOTE | 2017-02-24 04:04 | PROGRESS NOTE ---
DATE: 02/23/2017 SUBJECTIVE: The patient states that her constipation is resolved but she is having bilateral lower abdominal pain on the right and left lower quadrant. The tracks around her upper abdomen. This has been associated with 7/10 pain and nausea. She reports that her oral intake has decreased considerably. Because of rib pain, she underwent a bone scan today which was negative except for arthritis. She and her family are requesting endoscopic evaluation to determine the cause of her symptoms. She is aware that she has a pancreas mass. She does not want to schedule an outpatient EGD with EUS until such time that her abdominal pain has resolved. OBJECTIVE: Vital Signs: On exam, her blood pressure is 161/52, pulse is 78, respirations 16, temperature of 98.1 degrees. Abdomen: Her abdomen is soft. She is able to depress the abdomen in the right and left lower quadrant that elicits pain. There is no rebound or guarding. OBJECTIVE DATA: Reveals a hemoglobin of 8.7, hematocrit of 21.8 and a white count of 6.62. She has 180,000 platelets. Sodium is 138, potassium 3.5, chloride 103, CO2 27, BUN 25, creatinine 1.6 and a glucose of 179. Calcium is 8.8, magnesium 1.8, total bilirubin 0.29, AST 21, ALT 13, alkaline phosphatase 81, total protein 5.7, and albumin 3.0. IMPRESSION: 1. Nausea with vomiting. 2. Abdominal pain. 3. Fecal impaction, resolved. 4. Mass in the head of the pancreas. 5. Intrahepatic and extrahepatic ductal dilation with a dilated common bile duct. RECOMMENDATION: 1. Continue Protonix 40 mg IV q.12 hours. 2. Continue MiraLAX 17 g p.o. b.i.d. The patient is currently on Plavix. They are requesting an EGD and colonoscopy. However, we will need to discuss with Cardiology the risks and benefits of holding her Plavix. It may be reasonable to discharge her to home and schedule an outpatient EGD and colonoscopy as she requires Plavix. Alternatively, we could perform an EGD on Thursday and defer the colonoscopy until the outpatient setting. 3. She still needs an EGD with EUS for further evaluation of the pancreas mass. 4. We need to consider therapy with IBgard or peppermint oil to help with abdominal spasms. The patient is somewhat anxious and I suspect may have an IBS component. At 86 years of age, I am reluctant to begin Bentyl or Levsin as they are on the [facility] list of medications that are not recommended in geriatric patients. 5. Additional recommendations to follow based on approval by Cardiology and the primary service as to the timing of her endoscopic evaluation. cc: MD Phyllis Ramirez MD Henry S Beeler, MD Mir K. Varquez, MD
[2017-02-24] MEDS: APRESOLINE PO SCH ×3 (05:37→21:43)
[2017-02-24] MEDS: HUMALOG SUBQ SCH ×4 (06:12→21:42)
[2017-02-24 06:19] LABS: MANUAL DIFF NEEDED? NO
[2017-02-24 06:55] LABS: BASO% 0.3 % (0.0-0.8); EOS# 0.27 X1000 (0.0-0.7); EOS% 3.7 % (0.0-10.0); HEMATOCRIT 26.6 % (37.0-47.0); HEMOGLOBIN 8.2 g/dL (12.0-16.0); IMM GRAN# 0.02 X1000 (0.0-0.04); IMM GRAN% 0.3 % (0.0-0.5); LYMPH# 1.83 X1000 (1.2-3.4); LYMPH% 24.9 % (20.5-51.1); MCH 27.9 PG (27-31); MCHC 30.8 g/dL (33-37); MCV 90.5 FL (81-99); MONO# 0.88 X1000 (0.11-0.59); MPV 11.7 FL (7.4-10.4); NEUT% 58.8 % (42.2-75.2); PLT 185 X1000 (130-400); RBC 2.94 XMIL (4.2-5.4)
[2017-02-24 06:58] LABS: CALCIUM 8.8 mg/dL (8.8-10.2); POTASSIUM 4.8 mmol/L (3.5-5.1)
[2017-02-24] MEDS: MORPHINE IV PRN (07:48)
[2017-02-24] MEDS: ZOFRAN IV PRN (07:49)
[2017-02-24] MEDS: PLAVIX PO SCH ×2 (07:53→08:01)
[2017-02-24] MEDS: COREG PO SCH ×3 (07:53→21:42)
[2017-02-24] MEDS: HEPARIN SUBQ SCH ×3 (07:53→21:43)
[2017-02-24] MEDS: ZOLOFT PO SCH ×2 (07:53→08:01)
[2017-02-24] MEDS: SODIUM CHLORIDE 0.9% INJ SCH ×2 (07:53→21:43)
[2017-02-24] MEDS: MIRALAX PO SCH ×2 (08:01→21:42)
[2017-02-24] MEDS: XANAX PO SCH ×3 (08:02→17:44)
[2017-02-24] MEDS: PROTONIX IV SCH ×3 (08:02→21:43)
--- NOTE | 2017-02-24 15:14 | CONSULTATION ---
DATE OF CONSULTATION: 02/23/2017 REASON FOR CONSULTATION: Phyllis Singh MD REASON FOR CONSULTATION: Pancreatic mass. HISTORY OF PRESENT ILLNESS: Ms. Arias is an 86-year-old female who presented to the emergency department complaining of abdominal pain with nausea and vomiting. She was admitted for further evaluation and workup. She subsequently underwent some lab work and imaging, which has revealed the patient to have a pancreatic mass at the head of the pancreas. CA- 19-9 was found to be elevated at 12. Amylase normal at 115 and lipase elevated at presentation at 127. We have been consulted due to the suspicion that this mass is cancer. PAST MEDICAL HISTORY: 1. Positive for chronic kidney disease. Patient is followed by Dr. Couch, but is not currently on hemodialysis. 2. Anemia of chronic disease. 3. Hypertension. 4. Peripheral vascular disease. 5. Diastolic dysfunction. 6. Diabetes mellitus. 7. Hyperlipidemia. 8. Renal artery stenosis, status post renal artery stenting. 9. Carotid artery disease, status post carotid endarterectomy. 10. Aortic stenosis. 11. History of cardiac arrhythmia with a previous pacemaker placement. PAST SURGICAL HISTORY: 1. Positive for renal stenting. 2. Carotid endarterectomy. 3. Pacemaker placement. 4. Heart catheterization. 5. Appendectomy. 6. Lumbar laminectomy. 7. Cholecystectomy. 8. Cataract extraction. 9. Superficial femoral artery stent placement. SOCIAL HISTORY: Patient denies any tobacco alcohol or drug use. She is . She has family who she lives with who are supportive. FAMILY HISTORY: The patient denies any history of cancer in her family. There is no family at bedside to help with the remainder of her history. REVIEW OF SYSTEMS: As per the HPI. All else is negative or noncontributory. PHYSICAL EXAMINATION: Vital Signs: Temperature 98 degrees, heart rate 66, respiration 16, blood pressure 152/53, O2 saturation 91% on room air. General: This is a chronically ill-appearing, elderly female, who is lying in hospital bed. She is in a room by herself. There is no family at bedside. She is in no acute distress. HEENT: Head normocephalic, atraumatic. Eyes: Pupils equal, round, reactive. Ears, nose, throat, neck, and mouth: Oral mucosa is normal. Neck: Supple. Cardiovascular: S1-S2 heard. Patient does have a 3/6 systolic murmur best heard at the right upper sternal border. Respiratory: Chest is essentially clear to auscultation bilaterally. Normal respiratory effort. Abdomen: Soft, nondistended. Positive bowel sounds. There is just some mild epigastric tenderness. Musculoskeletal: No bony abnormalities. Extremities: Patient has some trace bilateral lower extremity edema. Neurologic: Patient is alert. She does seem a little confused, but not combative or extremely altered. No obvious focal motor deficits noted. LABORATORY AND STUDIES: Hemogram: White blood cells 6.62, hemoglobin 8.7, hematocrit 28.1, platelet count 180,000. Sodium 138, potassium 3.5, chloride 103, carbon dioxide is 27, BUN is 25, creatinine is 1.6, glucose is 144. CT of the abdomen and pelvis done on 2016 shows rectal fecal impaction. Questionable low dense masslike focus near the head of the pancreas. Intrahepatic and extrahepatic biliary dilatation, which is due in part from post cholecystectomy as well as her age. It is difficult to completely exclude a component of obstruction. ASSESSMENT AND PLAN: 1. Pancreatic mass with elevated CA-19-9. We agree that the patient needs to undergo EGD with the EUS for further evaluation. The plan at this time is to likely have the patient be discharged and then go over to [place] to have that procedure completed. Once the pathology is back, we can discuss the findings with the patient. 2. Abdominal pain. Continue pain management. Gastroenterology workup as per above. We want to thank you for consulting us on Ms. Arias. We will continue to follow along and adjust our treatment plan per her hospital course. Dictated by FAN English for Grace Norton MD cc: Grace Norton MD I have seen and examined the patient, reviewed her chart and agree with the above A/P. Await biopsy results. Grace Norton MD [facility]
--- NOTE | 2017-02-24 17:06 | PROGRESS NOTE ---
DATE: 02/24/2017 HISTORY OF PRESENT ILLNESS: An 86-year-old, white female with multiple medical problems, who presented to the emergency room with fairly acute onset of abdominal pain, nausea and vomiting that began around noon. The patient described acute left upper quadrant pain followed by multiple episodes of vomiting and prompted her to come in to the emergency room. The patient described it as sharp and constant, radiates to her back. She denies any hematemesis. She denies any diarrhea. She had denies hematochezia or melena. Denies any fever, chills, cough or congestion. She denies any unintentional weight loss. When she came to the ER she had a CT of the abdomen and pelvis done which showed rectal fecal impaction, questionable low-dose mass-like focus near the head of the pancreas. There is also intrahepatic and extrahepatic biliary dilatation which is at least in part due to post cholecystectomy and her age. Difficult to exclude a component of obstruction. PAST MEDICAL HISTORY: Includes: 1. Chronic kidney disease stage 3-4, followed by Dr. Couch, currently not on hemodialysis. 2. Anemia. 3. Hypertension. 4. Left carotid bruit. 5. Peripheral vascular disease. 6. Diastolic dysfunction. 7. Diabetes mellitus. 8. Hyperlipidemia. 9. Renal artery stenosis status post renal artery stenting. 10. Carotid artery disease status post carotid endarterectomy. 11. Aortic stenosis. 12. Status post pacemaker placement. Patient is comfortable at present time. Have discussed with Dr. Singh they would like her to get an EGD and colonoscopy before she leaves. Unfortunately she is on Plavix. Dr. Singh would like to get Cardiology involved to make sure she is okay to stop or hold her Plavix. PHYSICAL EXAMINATION: Vital Signs: Temperature 98.3 degrees, pulse 70, respiration is 18, blood pressure 153/58. CVP less than 6 cm. Lungs: Clear in all lung villalta. Cardiovascular: Regular rhythm and rate without murmur or S3. Abdomen: Soft, nontender at this point. Genitourinary: Urine output was 1400 mL. LAB: White count 7360, hematocrit 26, platelet count 185,000. Sodium 140, potassium 4.8, chloride 104, bicarb 27, BUN 32, creatinine 1.9. Blood sugar is 136, 137, 216. ASSESSMENT AND PLAN: 1. Pancreatic mass with elevated CA-19-9. Patient needs to undergo EGD and in the [facility] for further evaluation. The plan at this time is I would like to have the patient be discharged and then go over to [place] to have that procedure completed. Once the pathology is back, then discuss with the patient. This was according to the note from Vera Tabares with Dr. Grace Portillo. 2. Abdominal pain. Continue pain management. So we will discuss with Dr. Singh and Dr. Portillo what the plans are. She is having rib pain and back pain and this seems to be brought under better control, and kidney function appears to be stable. cc: Rolando Braden MD
[2017-02-24] MEDS: TYLENOL PO PRN (17:44)
[2017-02-24] MEDS: LIPITOR PO SCH (21:42)
[2017-02-24] MEDS: NORVASC PO SCH (21:43)
[2017-02-24] MEDS: RESTORIL PO SCH (21:44)
[2017-02-25 05:53] LABS: MANUAL DIFF NEEDED? NO
[2017-02-25] MEDS: APRESOLINE PO SCH ×3 (05:58→21:40)
[2017-02-25] MEDS: HUMALOG SUBQ SCH ×4 (06:00→20:54)
[2017-02-25 06:10] LABS: BASO% 0.4 % (0.0-0.8); EOS# 0.23 X1000 (0.0-0.7); EOS% 3.4 % (0.0-10.0); HEMATOCRIT 27.2 % (37.0-47.0); HEMOGLOBIN 8.4 g/dL (12.0-16.0); IMM GRAN# 0.02 X1000 (0.0-0.04); IMM GRAN% 0.3 % (0.0-0.5); LYMPH# 1.87 X1000 (1.2-3.4); LYMPH% 27.9 % (20.5-51.1); MCH 27.9 PG (27-31); MCHC 30.9 g/dL (33-37); MCV 90.4 FL (81-99); MONO% 10.4 % (1.7-9.3); MPV 11.7 FL (7.4-10.4); NEUT% 57.6 % (42.2-75.2); PLT 180 X1000 (130-400); RBC 3.01 XMIL (4.2-5.4)
[2017-02-25] MEDS: ZOLOFT PO SCH (09:04)
[2017-02-25] MEDS: PROTONIX IV SCH ×2 (09:04→21:41)
[2017-02-25] MEDS: SODIUM CHLORIDE 0.9% INJ SCH ×2 (09:04→21:41)
[2017-02-25] MEDS: MIRALAX PO SCH ×2 (09:04→21:40)
[2017-02-25] MEDS: XANAX PO SCH ×3 (09:04→17:26)
[2017-02-25] MEDS: HEPARIN SUBQ SCH ×2 (09:04→21:40)
[2017-02-25] MEDS: PLAVIX PO SCH (09:05)
[2017-02-25] MEDS: COREG PO SCH ×2 (09:05→21:40)
[2017-02-25] MEDS: MORPHINE IV PRN ×2 (10:50→17:26)
[2017-02-25] MEDS: ZOFRAN IV PRN ×2 (10:50→17:27)
--- NOTE | 2017-02-25 13:05 | PROGRESS NOTE ---
DATE: 02/25/2017 SUBJECTIVE: Ms. Arias said she is still having some epigastric discomfort. Bowels are moving. She is eating. OBJECTIVE: Vital Signs: Remains afebrile and temp 98.0 degrees, pulse 66, respirations 14, blood pressure 136/49. Respiratory: Lungs are clear in all lung villalta. Cardiovascular exam: Regular rhythm and rate without murmur or S3. Abdomen: Soft. Skin: Warm and dry. Blood sugar 162,114 and 233. ASSESSMENT AND PLAN: 1. Pancreatic mass. Elevated CA 19.9. The patient needs to undergo esophagogastroduodenoscopy. Dr. Portillo and Dr. Singh are following. I think they are deciding on what is best. Would like to have esophageal ultrasound I think as well, and trying to get tissue diagnosis. We will let Dr. Portillo and Dr. Singh discuss this note. 2. Abdominal pain, fairly well controlled. 3. Need to hold her Plavix. She has underlying issue of renal artery stenosis, coronary artery disease. I think Dr. Singh would like cardiology to weigh in on this as well. I will start the Plavix. 4. Status post pacemaker. 5. History of diastolic dysfunction. cc: Rolando Braden MD
--- NOTE | 2017-02-25 15:14 | CONSULTATION ---
DATE OF CONSULTATION: 02/25/2017 INDICATIONS: History of stenting, possible coronary versus renal artery. Evaluate the ability to discontinue Plavix. HISTORY OF PRESENT ILLNESS: Ms. Arias is an 86-year-old white female, with a history of multiple medical problems, including peripheral vascular disease and possible diastolic dysfunction. She follows with Dr. Alicea in [place] for her cardiac issues. She apparently presented on the with complaints of diffuse abdominal pain, as well as some issues with vomiting. Since that time she was admitted and evaluated. Specifically, she had a CT scan on the demonstrating a questionable low dense masslike focus near the head of the pancreas. She is currently undergoing evaluations by GI, as well as Oncology. She reports a history of possible stenting possibly in the renal artery. She is unclear exactly when this was. She is on Plavix. She does not think she has had any stenting procedures performed in the last year. She has no issues with chest pain. She is not having any issues with shortness of breath or orthopnea. The entirety of the history was taken with the patient lying flat, in no distress. PAST MEDICAL HISTORY: Through chart review, looks to be consist significant for: 1. Chronic kidney disease. 2. Hypertension. 3. History of carotid artery disease with previous carotid endarterectomy. 4. Peripheral vascular disease with possible renal artery stent previously. 5. Diabetes mellitus. 6. Diastolic dysfunction. 7. Hyperlipidemia. 8. Questionable aortic stenosis. SOCIAL HISTORY: Denies any tobacco, alcohol, or illicit drug use. She is and lives with her family who have been present previously in the hospital. REVIEW OF SYSTEMS: A 10 system review of systems is negative, except for those things mentioned in HPI. FAMILY HISTORY: Significant for hypertension. PHYSICAL EXAMINATION: Vital Signs: She is afebrile. Heart rate is 66. Blood pressure 136/49. General: She is in no acute distress. HEENT: Oropharynx is moist. Poor dentition. Eye examination shows pink conjunctivae. White sclerae. Neck Examination: Shows no obvious thyromegaly or thyroid tenderness. Cardiovascular: She sounds to be in a regular rate and rhythm. There is a 2/6 systolic murmur heard somewhat diffusely throughout the precordium. Extremities: She has no lower extremity edema. She has warm and well perfused lower extremities. Chest Examination: Sounds relatively clear, but she had a poor inspiratory effort. No increased work of breathing. Abdomen: Soft. She has mild diffuse tenderness throughout all quadrants. No obvious rebound or guarding. No obvious organomegaly. Skin Examination: Warm and dry throughout. No obvious rashes. Neurological: He is moving all extremities well. No obvious lateralizing deficits. Cranial nerves appear intact. Psychiatric: Alert and oriented, pleasant. Normal mood and affect. PERTINENT DATA: White count 6.7, hematocrit 27.2, platelet count is 180,000. Sodium yesterday was 140, with a potassium of 4.8, BUN 32, creatinine 1.9. This seems to be roughly stable for the patient. Her albumin was 3 on the . She had a CT scan of the abdomen showing a masslike focus near the head of the pancreas, as previously described. Intra and extra hepatic biliary dilatation. Her total bilirubin has been normal. ASSESSMENT: 1. Possible pancreatic mass. 2. Previous history of peripheral vascular disease with possible renal artery stenting. PLAN: We are awaiting records request from Dr. Alicea's office. The patient is not aware of any stenting procedures that have been performed in the last year, but she has a somewhat difficult historian and is not entirely reliable I would feel. There is a question of whether the patient has aortic stenosis and she does have a systolic murmur present on examination. I think it would be reasonable to order an echocardiogram to evaluate this. Again, we will wait on her records from Dr. Alicea's office. cc: Roberto Carlos Lay MD
[2017-02-25] MEDS: LIPITOR PO SCH (21:39)
[2017-02-25] MEDS: RESTORIL PO SCH (21:40)
[2017-02-25] MEDS: NORVASC PO SCH (21:40)
--- NOTE | 2017-02-26 02:23 | PROGRESS NOTE ---
DATE: 02/24/2017 SUBJECTIVE: The patient states that she continues to have abdominal pain and slight nausea. When discussing her care, she is unable to state why she is on Plavix and aspirin. She has a heart murmur and a history of cardiac arrhythmias. Therefore, I recommend a Cardiology consult, with clearance prior to any potential endoscopic therapy. This was discussed with Dr. Braden, who is in agreement. I will await their evaluation. Potentially, we could place the patient on the schedule for Thursday or Thursday, once we are certain that she is able to stop her anticoagulation. cc: MD Liu Daniels MD Heather Shah, MD Allen J. Schmidt, MD
[2017-02-26] MEDS: HUMALOG SUBQ SCH ×4 (06:08→22:11)
[2017-02-26] MEDS: APRESOLINE PO SCH ×3 (06:21→22:11)
[2017-02-26] MEDS: PROTONIX IV SCH ×2 (08:22→22:10)
[2017-02-26] MEDS: PLAVIX PO SCH (08:22)
[2017-02-26] MEDS: SODIUM CHLORIDE 0.9% INJ SCH ×2 (08:22→22:10)
[2017-02-26] MEDS: COREG PO SCH ×2 (08:22→22:10)
[2017-02-26] MEDS: XANAX PO SCH ×3 (08:22→16:59)
[2017-02-26] MEDS: HEPARIN SUBQ SCH ×2 (08:22→22:10)
[2017-02-26] MEDS: MIRALAX PO SCH ×2 (08:22→22:12)
[2017-02-26] MEDS: ZOLOFT PO SCH (08:23)
--- NOTE | 2017-02-26 10:39 | ECHO REPORT ---
ORDER DATE: 02/25/2017 INTERPRETING PHYSICIAN: Heladio Garcia MD. CLINICAL INDICATIONS: An 86-year-old female with a heart murmur, hypertension, hyperlipidemia. M-MODE MEASUREMENTS: Right ventricle: 3.0 cm. Left ventricle end diastole: 5.6 cm. Left ventricle end systole: 3.4 cm. Posterior wall: 1.1 cm. Interventricular septum: 1.1 cm. Left atrium: 4.7 cm. Aortic root: 3.2 cm. SUMMARY OF 2-DIMENSIONAL IMAGIN. The left ventricular systolic function is normal. The ejection fraction is estimated at 65%. 2. The right ventricle appears to be borderline enlarged. There is borderline concentric LVH. 3. The left atrium is moderately enlarged. 4. The right atrium appears to be at the upper limits of normal. 5. The inferior vena cava is not dilated. 6. The aortic valve shows calcification of the cusps with slight restriction to its opening. Color flow mapping shows no regurgitation. Maximum gradient across the outflow tract of the left ventricle is 21 mmHg with a mean gradient of 12. The valve area calculated by continuity equation is 1.6 cm2 indicating a trivial degree of aortic stenosis. 7. The pulmonic valve looks normal. Color flow mapping is unremarkable. 8. The tricuspid valve shows a mild to moderate degree of regurgitation. Pacemaker leads are noted within the right-sided chambers. The pulmonary pressure is estimated at 75 mmHg. 9. The mitral annulus shows moderate calcification. The leaflets of the mitral valve open normally. Color flow mapping of the mitral valve indicates trace of regurgitation. The pulsed wave Doppler of mitral inflow shows mild reversal of the E and the A ratio. The ratio is 0.8. The tissue Doppler of septal and lateral mitral annulus averages 6 cm. The pulsed wave Doppler of pulmonary venous flow is normal. There is no definite diastolic dysfunction. 10.There is no pericardial effusion, masses, nor thrombus. SUMMARY: In summary, this study shows: 1. Normal left ventricular systolic function, ejection fraction of 65% with a mild degree of concentric LVH. 2. Mildly enlarged right ventricle. 3. Moderately enlarged left atrium. 4. A mild degree of aortic stenosis, mean gradient 12 mmHg, valve area 1.6 cm2. 5. Moderate calcification of the mitral annulus. 6. No significant diastolic dysfunction. 7. Moderate to severe pulmonary hypertension estimated at 75 mmHg. Clinical correlation recommended. cc: MD Roberto Carlos Casillas MD
--- NOTE | 2017-02-26 13:15 | PROGRESS NOTE ---
DATE: 02/26/2017 Ms. Arias is waiting on a procedure. She feels comfortable, breathing good. Afebrile. Temp 97.8 degrees, pulse 66, respirations 20, blood pressure 126/48.Lungs: Clear in all lung villalta. Cardiovascular: Regular rhythm and rate without murmur or S3. Abdomen: Soft, nontender. Blood sugars 160, 120, 146. ASSESSMENT AND PLAN: 1. Abdominal pain. Slight nausea. She is not sure why she is on Plavix and aspirin. She has not had any cardiac history that she remembers. The plan is to get EGD on Thursday and I think they would like to get colonoscopy as well. Echocardiogram shows normal left ventricular function. Ejection fraction 65%. Mild degree of concentric LVH. Mildly enlarged right ventricle. Moderately enlarged left atrium. Mild degree of aortic stenosis. Dr. Roberto Carlos Lay, tier lift truck operator consulted. He is waiting the reports from Dr. Alicea's office. Not aware of any stenting procedures that have been performed within last year. Difficult historian but question is the patient does not seem to have significant aortic stenosis and I suspect we could stop the Plavix and aspirin in preparation for endoscopy. 2. Pancreatic mass. Elevated CA-19-9 and the plan is to try and do an EGD and I think colonoscopy. Discussed with Dr. Singh and Dr. Portillo. 3. Review of her current orders. I do not see any change at this point. cc: Rolando Braden MD
--- NOTE | 2017-02-26 14:55 | PROGRESS NOTE ---
DATE: 02/26/2017 SUBJECTIVE: Ms. Arias continues to have some mild abdominal pain which she actually says has improved somewhat since yesterday, although it is still present. PHYSICAL EXAMINATION: Vital Signs: She is afebrile. Heart rate is 66, blood pressure 126/48. General: No acute distress. Cardiovascular: She sounds to be in a regular rate and rhythm. There is a slight systolic murmur that is crescendo/decrescendo, best heard at the right upper sternal border. No lower extremity edema. Chest: Exam is clear to auscultation bilaterally. No increased work of breathing. Abdomen: Soft. Very minimal tenderness to palpation somewhat diffusely. PERTINENT DATA: She has no laboratory data from today. Her echo from yesterday demonstrated a preserved EF of 65%. Mild LVH, mild left atrial enlargement. Suggestion of mild aortic stenosis. Pulmonary hypertension with an RV systolic pressure of 75. ASSESSMENT: 1. Pancreatic head mass. Still undergoing evaluation. 2. Peripheral vascular disease with possible renal artery stenting. PLAN: We are still awaiting records from Dr. Alicea office. I have re-requested these for medical records today. Likely, she has not had any sort of stenting procedure in the last year based on the history obtained from her yesterday, although she is a very poor historian. We will again request records and if no stenting in the last year, she will be free to stop aspirin and Plavix as needed for upcoming procedures. cc: Roberto Carlos Lay MD
[2017-02-26] MEDS: LIPITOR PO SCH (22:10)
[2017-02-26] MEDS: NORVASC PO SCH (22:10)
[2017-02-26] MEDS: RESTORIL PO SCH (22:11)
[2017-02-27] MEDS: TYLENOL PO PRN (04:02)
[2017-02-27] MEDS: APRESOLINE PO SCH ×3 (06:31→22:11)
[2017-02-27] MEDS: HUMALOG SUBQ SCH ×4 (06:34→22:12)
[2017-02-27] MEDS: HEPARIN SUBQ SCH ×2 (08:58→22:10)
[2017-02-27] MEDS: COREG PO SCH ×2 (08:59→22:11)
[2017-02-27] MEDS: MIRALAX PO SCH ×2 (08:59→22:09)
[2017-02-27] MEDS: ZOLOFT PO SCH (08:59)
[2017-02-27] MEDS: XANAX PO SCH ×3 (08:59→17:35)
--- NOTE | 2017-02-27 11:28 | PROGRESS NOTE ---
DATE: 02/27/2017 SUBJECTIVE: Ms. Arias continues to have some mild abdominal pain that seems to be persistent and stable from yesterday. No nausea. No vomiting. PHYSICAL EXAMINATION: Vital signs: Afebrile. Heart rate is 66. Blood pressure 146/50. Generally: No acute distress. Cardiovascular: She is in a regular rate and rhythm. She has no obvious murmurs. No S3. No lower extremity edema. Chest: Clear bilaterally. No increased work of breathing. Abdomen: Soft. Minimal tenderness to palpation somewhat diffusely. No rebound or guarding. PERTINENT DATA: She has no laboratory data and no new testing from yesterday or today. ASSESSMENT: 1. History of peripheral vascular disease. 2. Pancreatic head mass. PLAN: The patient records have been requested from Dr. Alicea's office as of February 20. Multiple requests have been sent by our medical records office and they have not replied. Attempts at contact were made with their office today by me however they are closed. We contacted her daughter and son-in-law and the patient has been living with them up until a few months ago. They report no recent interventions within the last year requiring continuous use of Plavix. Apparently the medication was initiated after she had a carotid endarterectomy. I think it would be reasonable based on this data that we have to stop the Plavix for any upcoming procedures. Please contact us with further questions if we can be of further assistance. cc: Roberto Carlos Lay MD
[2017-02-27] MEDS: SODIUM CHLORIDE 0.9% INJ SCH (14:12)
[2017-02-27] MEDS: PROTONIX IV SCH ×2 (14:12→22:10)
--- NOTE | 2017-02-27 15:13 | PROGRESS NOTE ---
DATE: 02/27/2017 Ms. Arias says that she feels a little better. She has been sitting up in a chair. Still has some discomfort in her abdomen but no real focal tenderness. EXAM: She is eating. Afebrile. Temp 98.0 degrees, pulse 64, respirations 20, blood pressure 122/66.Pupils: Equal, round. Lungs: Clear in all lung villalta. Cardiovascular: Regular rhythm and rate without murmur or S3. Abdomen: Tender at the epigastrium otherwise unremarkable. Extremities: No clubbing, cyanosis, or edema. Good urine output. LABS: Reviewed labs from the . Blood sugars 187, 167, 126. ASSESSMENT AND PLAN: 1. History of peripheral vascular disease. 2. Pancreatic head mass. The patient record requested from Dr. Alicea's office. Multiple requests have been sent by our medical record office. I contacted her daughter and son-in- law. The patient been living with them up until a few months ago. The patient has had recent intervention last year requiring continued use of Plavix. Apparently medication is initiated after the carotid endarterectomy. We are going to stop the Plavix and see if we can proceed with procedures. 3. Discussed with the [id number] the patient. Right now the plan is to undergo EGD and colonoscopy and then following that to try and get her for a needle biopsy of the pancreatic mass per ultrasound guided needle biopsy. I discussed with Dr. Portillo and I discussed with Dr. Singh the current plan. cc: Rolando Braden MD
--- NOTE | 2017-02-27 15:37 | PROGRESS NOTE ---
DATE: 02/27/2017 SUBJECTIVE: The patient continues to have abdominal pain and anorexia. She has reached a point that she has no desire to get out of bed. Her family is concerned because this is a dramatic change from admission. Her only complaint is abdominal pain. She denies vomiting but reports mild nausea. She is currently sleeping and refused an exam. RECOMMENDATION: 1. I will plan to perform an EGD colonoscopy on Thursday. Consent was discussed with her daughter who is at bedside. 2. Additional recommendations to follow based on her clinical course. cc: MD Rolando Daniels MD
[2017-02-27] MEDS: MORPHINE IV PRN ×2 (16:10→22:09)
[2017-02-27] MEDS: RESTORIL PO SCH (22:10)
[2017-02-27] MEDS: NORVASC PO SCH (22:11)
[2017-02-27] MEDS: LIPITOR PO SCH (22:11)
[2017-02-28] MEDS: PROTONIX IV SCH ×2 (03:59→13:51)
[2017-02-28] MEDS: APRESOLINE PO SCH ×2 (06:10→13:51)
[2017-02-28] MEDS: HUMALOG SUBQ SCH ×3 (06:13→17:08)
--- NOTE | 2017-02-28 11:36 | PROGRESS NOTE ---
DATE: 02/28/2017 SUBJECTIVE: She is resting comfortably. Easy to arouse. No complaints this morning. OBJECTIVE: Vital Signs: Remains afebrile, temperature 97.8 degrees, pulse 78, respirations 18, blood pressure 140/58. CVP less than 6 cm. Lungs: Clear in all lung villalta. Cardiovascular: Regular rhythm and rate without murmur or S3. Urine output 1300 mL. Blood sugar is 172, 401, 149. ASSESSMENT AND PLAN: 1. The plan is to perform EGD and colonoscopy on Thursday. We have held her Plavix and the family would like this done before she leaves. 2. Dr. Portillo would like her to get a tissue biopsy, so from there will probably going to [place] for ultrasound-guided ERCP and tissue biopsy of the pancreatic mass. 3. Abdominal pain and discomfort seems to be better. 4. Kidney function seems to be stable. She has anemia of chronic disease which is stable. 5. Blood pressure is well controlled. History of diastolic dysfunction. I do not see any change. PLAN: Plavix is off and we will hold that in preparation for a colonoscopy and EGD on Thursday. REVIEW OF ORDERS: She is on Zoloft 50 mg a day. Restoril 15 mg at bedtime. She is getting the prep today and a Dulcolax suppository. Polyethylene glycol. She is getting Apresoline 25 mg p.o. q.8h and Lipitor 10 mg a day, Coreg 25 mg b.i.d., Norvasc 5 mg at bedtime, Xanax 0.25 mg t.i.d. and she is on heparin 5000 units subcu q.12 hours. cc: Rolando Braden MD
[2017-02-28] MEDS: XANAX PO SCH ×3 (11:44→17:27)
[2017-02-28] MEDS: COREG PO SCH (11:44)
[2017-02-28] MEDS: ZOLOFT PO SCH (11:44)
[2017-02-28] MEDS: MIRALAX PO SCH (11:44)
[2017-02-28] MEDS: HEPARIN SUBQ SCH (11:44)
[2017-02-28] MEDS: MORPHINE IV PRN (13:50)
[2017-02-28] MEDS: SODIUM CHLORIDE 0.9% INJ SCH (13:51)
[2017-02-28] MEDS ORDERED: MIRALAX PO ONE (15:00)
[2017-02-28] MEDS: NS 1,000 ML IV SCH (17:08)
[2017-02-28 17:48] LABS: MANUAL DIFF NEEDED? NO
[2017-02-28 17:51] LABS: BASO% 0.4 % (0.0-0.8); EOS# 0.13 X1000 (0.0-0.7); EOS% 2.4 % (0.0-10.0); HEMOGLOBIN 8.6 g/dL (12.0-16.0); LYMPH# 1.17 X1000 (1.2-3.4); LYMPH% 21.6 % (20.5-51.1); MCH 28.7 PG (27-31); MCHC 30.7 g/dL (33-37); MCV 93.3 FL (81-99); MONO# 0.44 X1000 (0.11-0.59); MONO% 8.1 % (1.7-9.3); MPV 11.8 FL (7.4-10.4); NEUT% 67.5 % (42.2-75.2); PLT 195 X1000 (130-400)
[2017-02-28 18:35] LABS: CALCIUM 9.3 mg/dL (8.8-10.2); MAGNESIUM 2.4 mg/dL (1.5-2.7); POTASSIUM 5.9 mmol/L (3.5-5.1); TOTAL BILIRUBIN 0.14 mg/dL (0.20-1.00); TOTAL PROTEIN 6.3 g/dL (6.3-8.3)
[2017-03-01] MEDS: ZOFRAN IV PRN (00:11)
[2017-03-01] MEDS: MORPHINE IV PRN ×3 (00:11→14:03)
[2017-03-01] MEDS: PROTONIX IV SCH ×2 (00:11→14:01)
[2017-03-01] MEDS: RESTORIL PO SCH ×2 (00:12→22:28)
[2017-03-01] MEDS: NORVASC PO SCH ×2 (00:12→22:29)
[2017-03-01] MEDS: APRESOLINE PO SCH ×3 (00:12→19:36)
[2017-03-01] MEDS: COREG PO SCH ×3 (00:12→22:29)
[2017-03-01] MEDS: LIPITOR PO SCH ×2 (00:12→22:29)
[2017-03-01] MEDS: MIRALAX PO SCH ×3 (00:13→22:27)
[2017-03-01] MEDS: HEPARIN SUBQ SCH ×3 (00:13→22:30)
[2017-03-01 06:16] LABS: MANUAL DIFF NEEDED? NO
[2017-03-01] MEDS: HUMALOG SUBQ SCH ×5 (06:16→22:29)
[2017-03-01] MEDS: NS 1,000 ML IV SCH ×2 (06:16→22:31)
[2017-03-01 06:30] LABS: BASO% 0.5 % (0.0-0.8); EOS# 0.13 X1000 (0.0-0.7); EOS% 2.2 % (0.0-10.0); HEMATOCRIT 26.6 % (37.0-47.0); HEMOGLOBIN 8.1 g/dL (12.0-16.0); IMM GRAN# 0.02 X1000 (0.0-0.04); IMM GRAN% 0.3 % (0.0-0.5); LYMPH# 1.27 X1000 (1.2-3.4); LYMPH% 21.4 % (20.5-51.1); MCH 27.9 PG (27-31); MCHC 30.5 g/dL (33-37); MCV 91.7 FL (81-99); MONO% 10.1 % (1.7-9.3); MPV 11.5 FL (7.4-10.4); NEUT% 65.5 % (42.2-75.2); PLT 185 X1000 (130-400)
[2017-03-01 07:07] LABS: ALBUMIN 2.9 g/dL (3.5-5.0); CALCIUM 9.3 mg/dL (8.8-10.2); MAGNESIUM 2.3 mg/dL (1.5-2.7); TOTAL BILIRUBIN 0.17 mg/dL (0.20-1.00); TOTAL PROTEIN 5.7 g/dL (6.3-8.3)
[2017-03-01 07:09] LABS: POTASSIUM 6.2 mmol/L (3.5-5.1)
[2017-03-01] MEDS ORDERED: VELTASSA PO ONE ×2 (07:51→08:03)
[2017-03-01] MEDS ORDERED: HUMULIN R IV ONE (08:05)
[2017-03-01] MEDS ORDERED: SODIUM BICARBONATE 8.4% IV PUSH ONE (08:06)
[2017-03-01] MEDS ORDERED: D50W SYRINGE IV ONE (08:06)
[2017-03-01] MEDS: ZOLOFT PO SCH (08:54)
[2017-03-01] MEDS: PERICOLACE PO SCH ×2 (08:55→22:28)
[2017-03-01] MEDS: XANAX PO SCH ×3 (08:55→22:34)
[2017-03-01] MEDS: SODIUM CHLORIDE 0.9% INJ SCH (14:01)
[2017-03-01] MEDS ORDERED: DULCOLAX PO ONE ×2 (15:00→22:00)
--- NOTE | 2017-03-01 15:22 | PROGRESS NOTE ---
DATE: 03/01/2017 SUBJECTIVE: Ms. Arias had high potassium this morning. She states she is hurting in her tummy. Still a fair amount of confusion. She thought it was March of 1998 and she thought she was in [facility]. I did get a chance to talk to the brother and his . OBJECTIVE: Vital signs: Remains afebrile, temp 97.5 degrees, pulse 79, respirations 16, blood pressure 136/74. HEENT: Pupils are equal and round. Neck: CVP less than 6 cm. Lungs: Clear in all lung villalta. Cardiovascular: Regular rhythm and rate without murmur or S3. Intake and output: Urine output 1200 mL. LAB: White count 5,940, hematocrit 26, platelet count 185,000. Sodium 141, potassium 6.2, chloride 106, bicarb 27, BUN 57, creatinine 1.8. Blood sugar 86, 186, 158. Liver functions stable. AST 47, ALT 36, alkaline phosphatase 106. ASSESSMENT AND PLAN: 1. Plan is to perform EGD and colonoscopy per Dr. Singh tomorrow. We have held her Plavix and the family would like to have this done before she leaves. 2. Dr. Portillo would like pursue an ultrasound-guided ERCP or a needle biopsy in [place] following her procedures tomorrow. Will discuss with Dr. Singh and Dr. Portillo about coordinating that. 3. Abdominal pain, discomfort. Seems to be pretty stable. She is having bowel movements. She is eating some. 4. Kidney function seems to be stable. She has chronic kidney disease. 5. Blood pressure. Well controlled. 6. She had some hyperkalemia. I suspect that may be from the prep, so we did give her an of D50 and 10 of insulin. Family gave her Veltassa as well 8.4 g. Will follow her potassium and magnesium. Note, sodium has come up. They did start some fluids yesterday. cc: Rolando Braden MD
--- NOTE | 2017-03-01 21:38 | PROGRESS NOTE ---
DATE: 03/01/2017 CHIEF COMPLAINT: Tired. HPI: Ms Arias is seen in the hospital with continued complaints of abdominal pain. She is scheduled for an EGD and colonoscopy tomorrow per the family's request. She is still somewhat confused. OBJECTIVE: Vital signs: Afebrile overnight. Current temperature 98.4, pulse 67, respiratory rate 18, blood pressure 138/58, O2 saturation 97% on 4 L. General: This is an elderly chronically ill-appearing woman in no acute distress. She is unaccompanied at the bedside at this time. Cardiovascular: Regular rate and rhythm. Normal S1, S2. No murmurs, rubs or gallops. Pulmonary: Lungs clear auscultation bilaterally without wheezes, rales, rhonchi. GI: Abdomen soft, nontender, nondistended with normoactive bowel sounds. Extremities: No clubbing, cyanosis, or edema, 2+ pulse x4. Neuro: Gait is unassessed as the patient is supine in the bed during consultation today. The patient is alert and oriented x1 and responds to voice. LABORATORY DATA: Reviewed. Hemoglobin 8.1, creatinine 1.81, potassium 6.2, on repeat was 5.7. ASSESSMENT AND PLAN: 1. Pancreatic mass: EUS with biopsy to be scheduled as an outpatient versus transfer to [facility] on Thursday or Thursday. 2. Abdominal pain: She will have EGD and colonoscopy per Dr. Singh on Thursday. 3. Anemia: Her hemoglobin remains stable but low at 8.1, iron saturation was 22%, bilirubin was normal. B12 and folic acid were adequate. 4. Elevated CA-19-9: Suspicious for underlying malignancy with an elevated level at 87. Endoscopic ultrasound and/or biopsy as above. Will follow along and leave further recommendations as indicated. cc: Grace Portillo MD
[2017-03-02] MEDS: APRESOLINE PO SCH ×3 (04:08→19:03)
[2017-03-02] MEDS: PROTONIX IV SCH ×2 (04:17→16:33)
--- NOTE | 2017-03-02 05:31 | EKG Report ---
Test Performed on : 03/01/2017 08:26:16 AM Test Reason : Potassium High Blood Pressure : / mmHG Vent. Rate : 066 BPM Atrial Rate : 066 BPM P-R Int : 292 ms QRS Dur : 084 ms QT Int : 386 ms P-R-T Axes : 069 -25 046 degrees QTc Int : 404 ms Sinus rhythm. with 1st degree AV block. Anteroseptal infarct , age undetermined Abnormal ECG When compared with ECG of 13-JAN-2014 10:20, Anteroseptal infarct is now present Confirmed by Delbert WADE, Rick Bahena ([id number]) on 03/03/2017 2:15:28 PM
[2017-03-02] MEDS: VELTASSA PO SCH (08:43)
[2017-03-02] MEDS: COREG PO SCH ×2 (08:43→22:09)
[2017-03-02] MEDS: NS 1,000 ML IV SCH (08:43)
[2017-03-02] MEDS: HUMALOG SUBQ SCH ×4 (09:06→22:10)
[2017-03-02] MEDS: MIRALAX PO SCH ×2 (09:07→22:13)
[2017-03-02] MEDS: XANAX PO SCH ×3 (09:07→16:32)
[2017-03-02] MEDS: ZOLOFT PO SCH (09:08)
[2017-03-02] MEDS: HEPARIN SUBQ SCH (09:08)
[2017-03-02 12:50] LABS: MANUAL DIFF NEEDED? NO
[2017-03-02 13:01] LABS: BASO% 0.3 % (0.0-0.8); EOS# 0.06 X1000 (0.0-0.7); EOS% 0.9 % (0.0-10.0); HEMATOCRIT 25.1 % (37.0-47.0); HEMOGLOBIN 7.4 g/dL (12.0-16.0); IMM GRAN# 0.02 X1000 (0.0-0.04); IMM GRAN% 0.3 % (0.0-0.5); MCH 27.4 PG (27-31); MCHC 29.5 g/dL (33-37); MONO# 0.44 X1000 (0.11-0.59); MONO% 6.8 % (1.7-9.3); MPV 11.2 FL (7.4-10.4); NEUT% 71.7 % (42.2-75.2); PLT 184 X1000 (130-400)
[2017-03-02] MEDS ORDERED: DIPRIVAN 1% ONE (13:23)
--- NOTE | 2017-03-02 13:55 | PROGRESS NOTE ---
DATE: 03/02/2017 SUBJECTIVE: She appears comfortable. Sleeping, easy to arouse. No discomfort at this point. OBJECTIVE: Vital signs: Temp 97.5 degrees, pulse 69, respirations 16, blood pressure 161/56. Neck: CVP less than 6 cm. Lungs: Clear in all lung villalta. Cardiovascular: Regular rhythm and rate without murmur or S3. Abdomen: Nontender. LABS: Blood sugar has been 251, 125, 178. ASSESSMENT AND PLAN: 1. Lab from yesterday had a high potassium which we gave her an amp of D50, some insulin and bicarb, and Veltassa. She is scheduled to go down for EGD and colonoscopy today. Has tolerated the prep. I think the plan is from there to try and get tissue diagnosis of the pancreatic mass. We have held the Plavix. Want her to go for an EGD with EUS at [facility]. I will discuss plans. Family is aware of our intentions. 2. Abdominal pain, controlled. 3. Anemia. Hemoglobin is stable. 4. Pancreatic mass. CA-19-9 elevated. I suspect malignancy. 5. Review of her orders. I do not see any change. We are giving Veltassa. I think we ought to probably check her electrolytes and liver functions again, so will plan on doing that today. cc: Rolando Braden MD
[2017-03-02 13:59] LABS: ALBUMIN 2.7 g/dL (3.5-5.0); CALCIUM 9.2 mg/dL (8.8-10.2); POTASSIUM 5.1 mmol/L (3.5-5.1); TOTAL BILIRUBIN 0.21 mg/dL (0.20-1.00); TOTAL PROTEIN 5.4 g/dL (6.3-8.3)
[2017-03-02] MEDS ORDERED: GOLYTELY PO ONE (15:00)
[2017-03-02] MEDS: MORPHINE IV PRN (15:35)
--- NOTE | 2017-03-02 16:29 | Diag Imaging Result Doc PS360 ---
EXAM: CT ABD/PELVIS ORAL CONTR ONLY INDICATION: abdominal pain greater than exam findings TECHNIQUE: COMPARISON: 02/20/2017 FINDINGS: There has been development of small to moderate-sized bibasilar pleural effusions with adjacent atelectasis and/or infiltrate. There is stable cardiomegaly. At the hepatic flexure of the colon there is focal wall thickening that is mildly irregular. This may be due to focal colitis. I suppose an underlying mass cannot completely be excluded. There is moderate gaseous distention of the colon but there is no obstructive pattern. There is also patchy nonspecific small bowel gas. There is no definite small bowel wall thickening. The rectal wall is mildly thickened. This may indicate proctitis. There is now no rectal fecal impaction as opposed to the previous study. There is extensive atherosclerotic calcification involving the aorta and its major branches including the proximal SMA. There are bilateral renal artery stents. Otherwise, the abdomen and pelvis are essentially stable as compared to recent previous study. IMPRESSION: 1.Nonspecific focal wall thickening involving the hepatic flexure of the colon. Please see above discussion. 2.Suggestion of mild rectal wall thickening suggesting possible proctitis. 3.Nonspecific moderate gaseous distention of the colon and mild patchy small bowel gas but no definite obstructive pattern. Electronically signed by Tong Lares 03/02/2017 4:26 PM
[2017-03-02] MEDS ORDERED: LASIX IV ONE (17:06)
[2017-03-02] MEDS ORDERED: SALINE LOCK IV FLUID XX ONE (17:06)
[2017-03-02] MEDS: LIPITOR PO SCH (22:09)
[2017-03-02] MEDS: NORVASC PO SCH (22:09)
[2017-03-02] MEDS: RESTORIL PO SCH (22:09)
[2017-03-03] MEDS: MORPHINE IV PRN ×2 (03:39→13:38)
[2017-03-03] MEDS: APRESOLINE PO SCH ×3 (05:29→22:10)
[2017-03-03] MEDS: PROTONIX IV SCH ×2 (05:47→16:58)
[2017-03-03] MEDS: SODIUM CHLORIDE 0.9% INJ SCH (05:47)
[2017-03-03] MEDS: HUMALOG SUBQ SCH ×4 (06:00→22:07)
[2017-03-03 07:07] LABS: MANUAL DIFF NEEDED? NO
[2017-03-03 07:18] LABS: BASO% 0.3 % (0.0-0.8); EOS# 0.09 X1000 (0.0-0.7); EOS% 1.4 % (0.0-10.0); HEMATOCRIT 24.4 % (37.0-47.0); HEMOGLOBIN 7.3 g/dL (12.0-16.0); IMM GRAN# 0.03 X1000 (0.0-0.04); IMM GRAN% 0.5 % (0.0-0.5); LYMPH# 1.27 X1000 (1.2-3.4); LYMPH% 20.1 % (20.5-51.1); MCH 27.5 PG (27-31); MCHC 29.9 g/dL (33-37); MCV 92.1 FL (81-99); MONO# 0.35 X1000 (0.11-0.59); MONO% 5.5 % (1.7-9.3); MPV 11.7 FL (7.4-10.4); NEUT% 72.2 % (42.2-75.2); PLT 188 X1000 (130-400); RBC 2.65 XMIL (4.2-5.4)
[2017-03-03 07:33] LABS: CALCIUM 9.3 mg/dL (8.8-10.2); POTASSIUM 4.2 mmol/L (3.5-5.1)
[2017-03-03] MEDS: VELTASSA PO SCH (10:39)
[2017-03-03] MEDS: XANAX PO SCH ×2 (10:39→22:16)
[2017-03-03] MEDS: MIRALAX PO SCH ×2 (10:39→22:13)
[2017-03-03] MEDS: ZOLOFT PO SCH (10:39)
[2017-03-03] MEDS: COREG PO SCH ×2 (10:40→22:10)
[2017-03-03] MEDS: TYLENOL PO PRN (11:19)
[2017-03-03] MEDS ORDERED: LASIX IV ONE ×2 (12:53→16:59)
[2017-03-03 13:39] LABS: ALLEN TEST YES; BE 3.2 mmoll (-3.0-3.0); BLOOD TYPE ARTERIAL; DRAW SITE L RADIAL; O2(CT) 11.3 mL/dL (15.0-23.0); PCO2(98.6) 42 mmHg (35-45); SAMPLE BLOOD; SAO2 88.7 % (95.0-100.0); THB 9.3 g/dL (11.5-17.4); pH(98.6) 7.43 (7.35-7.45)
[2017-03-03 13:42] LABS: MODALITY CANNULA; PO2(98.6) 46 mmHg (60-100)
--- NOTE | 2017-03-03 14:02 | PROGRESS NOTE ---
DATE: 03/03/2017 SUBJECTIVE: She was sleeping, easy to arouse. She says she does not feel very good, nurse is concerned that she seemed to have more trouble breathing but she seemed to be breathing comfortably. OBJECTIVE: Vital signs: Respiratory rate was 12, temperature 97.3 degrees, pulse 69, blood pressure 153/55. CVP appeared 8 cm. Lungs: Clear anterior lateral, there were some rales at the bases. Abdomen: Soft. Skin: Is warm and dry. Urine output I guess it was 7000 mL. LABS: This morning white count 6320, hematocrit 24, platelet count 188,000. Sodium 144, potassium 4.2, chloride 102, BUN 46, creatinine 1.9, blood sugars 147, 213, . ASSESSMENT AND PLAN: 1. Pancreatic mass. Elevated CA-19-9. Note CT scan showed nonspecific focal wall thickening involving the hepatic flexure of the colon. Suggestion of mild rectal wall thickening, possible proctitis, nonspecific moderate gaseous distention the colon, mild patchy small bowel gas but no definite obstruction assessment and plan 1 pancreatic mass. Hope is to try and get her ready to get it a esophageal ultrasound needle biopsy in [place], would like to get a colonoscopy today and I think she is stable to do that. 2. Abdominal pain. EGD done yesterday. Colonoscopy planned today. 3. Anemia. B12, folic are adequate, hemoglobin is stable, iron saturation 22%. I am going to give additional dose of Lasix, I am going to stopped the Xanax for now and will try and get the colonoscopy and see what we can do from there. cc: Rolando Braden MD
--- NOTE | 2017-03-03 14:10 | Diag Imaging Result Doc PS360 ---
CHEST-PORTABLE - 03/03/2017 INDICATION: shortness of breath and chest pain TECHNIQUE: COMPARISON: 02/20/2017 FINDINGS: Stable pacemaker. Lung volumes are lower. There is significant increasing infiltrate and diffuse bilateral pulmonary vascular congestion. Stable cardiomegaly. No pneumothorax or large effusion. IMPRESSION: Significant worsening in pulmonary vascular congestion and bilateral infiltrates, nonspecific but suggesting pulmonary edema. Electronically signed by Heber Doll 03/03/2017 2:07 PM
--- NOTE | 2017-03-03 14:11 | Diag Imaging Result Doc PS360 ---
ABDOMEN FLAT/UPRIGHT - 03/03/2017 INDICATION: increased abd pain, SOB, rales TECHNIQUE: Two views COMPARISON: 02/21/2017 FINDINGS: Stable surgical clips and calcium densities in the right upper quadrant. Stable phleboliths in the pelvis. Stable lower lumbar spine fusion rods. No bowel obstruction or free air. IMPRESSION: No acute disease or change from prior. Electronically signed by Heber Doll 03/03/2017 2:09 PM
[2017-03-03 14:29] LABS: MANUAL DIFF NEEDED? NO
[2017-03-03 14:37] LABS: BASO% 0.2 % (0.0-0.8); EOS# 0.07 X1000 (0.0-0.7); EOS% 1.2 % (0.0-10.0); HEMATOCRIT 23.3 % (37.0-47.0); HEMOGLOBIN 7.2 g/dL (12.0-16.0); IMM GRAN# 0.02 X1000 (0.0-0.04); IMM GRAN% 0.3 % (0.0-0.5); LYMPH# 1.59 X1000 (1.2-3.4); LYMPH% 26.6 % (20.5-51.1); MCHC 30.9 g/dL (33-37); MCV 90.7 FL (81-99); MONO# 0.45 X1000 (0.11-0.59); MONO% 7.5 % (1.7-9.3); MPV 10.9 FL (7.4-10.4); NEUT% 64.2 % (42.2-75.2); PLT 187 X1000 (130-400); RBC 2.57 XMIL (4.2-5.4)
[2017-03-03 14:49] LABS: CALCIUM 9.4 mg/dL (8.8-10.2); MAGNESIUM 1.9 mg/dL (1.5-2.7); POTASSIUM 4.3 mmol/L (3.5-5.1)
[2017-03-03 17:14] LABS: IRON SATURATION 21 %; TIBC 239 ug/dL; TOTAL IRON 49 ug/dL (49-151); UNBOUND IRON 190 ug/dL (112-346)
--- NOTE | 2017-03-03 17:19 | PROGRESS NOTE ---
DATE: 03/03/2017 HISTORY OF PRESENT ILLNESS: This is an 86-year-old, who was admitted with abdominal pain. She has multiple medical problems. She came to the emergency room with fairly acute onset of abdominal pain, nausea, and vomiting which began around noon that day on 02/20/2007. Patient describes left upper quadrant pain followed by multiple episodes of vomiting. The pain described as sharp and constant, radiates to the back. Denied any hematemesis. Denied diarrhea. No fever or chills. CT of the abdomen and pelvis done showed rectal fecal impaction, questionable low dense-like focus near the head of the pancreas. There was also intrahepatic and extrahepatic biliary dilatation which is at least in part due to being status post cholecystectomy, and her age. She was admitted. CA-19-9 was elevated. REVIEW OF PAST MEDICAL HISTORY: 1. Chronic kidney disease stage [address] Couch is following. 2. Anemia of chronic disease. 3. Hypertension. 4. Left carotid bruit. 5. Peripheral vascular disease. 6. Diastolic dysfunction. 7. Diabetes mellitus. 8. Hyperlipidemia. 9. Renal artery stenosis status post renal artery stenting. 10. Carotid artery stenosis status post carotid endarterectomy. 11. Aortic stenosis. 12. Status post pacemaker placement, arrhythmia SURGICAL HISTORY: Had pacemaker placement, renal artery stenting, cardiac catheterization, carotid endarterectomy in the right, appendectomy, lumbar laminectomy, cholecystectomy, cataract extraction, insertion of superficial femoral artery stent. CONSULTATION: Per Dr. Singh on 02/21 for nausea, vomiting, and abdominal pain. Recommendation was an MRI of the pancreas. So the plan was to get an EUS with Dr. Kunal Newman in [place], and Dr. Grace Portillo was consulted. We had put her on Protonix. She continues to have abdominal pain. Dr. Portillo was consulted, would like to pursue getting tissue biopsy. Concern about the possibility of bleeding, and so wanted to pursue EGD and colonoscopy per Dr. Singh. Request to get Cardiology to ask for holding Plavix. We have held the Plavix. She did get her EGD. Unable to do colonoscopy. We did a repeat CT scan. Of note, during the prep of this CT scan she did develop hyperkalemia. We gave her an ampule of bicarb, D50 and insulin, and this returned. She has done fairly well. She has had episodes of confusion and we are hoping to do a colonoscopy today. This morning she was awake and alert and looked good. About 8 o'clock, a couple hours later, she seemed very lethargic and was complaining that she was short of breath, but mainly complaining of abdominal pain, and she complained of chest pain as well. When questioned later, she felt the chest pain was better. She still has abdominal pain and that seems to be more impressive. EKG showed sinus rhythm, did not see any ST-segment changes. She has poor R-wave progression in the anterior septal leads but this is not new. We did an ultrasound of her bladder and it looked like it was over 600 mL. She had an in and out catheterization and drained 400 mL. I think she is uncomfortable from her catheter as well. She has remained afebrile. PHYSICAL EXAMINATION: Respiratory: Exam at about 4 o'clock this afternoon, she said she feels better, breathing is comfortable. CVP is about 6 cm. Lungs clear. Cardiovascular: Regular rhythm and rate without murmur or S3. Abdomen: Soft. Skin: Warm and dry. Extremities: I do not see any pedal edema. ASSESSMENT AND PLAN: 1. Pancreatic mass. Trying to pursue obtaining tissue biopsy. 2. Abdominal pain. She has anemia. Hemoglobin 7.2, hematocrit 23, and the question is whether we need to transfuse her. 3. She has significant peripheral vascular disease and assumption is that she probably has coronary artery disease as well. Previous echocardiogram done on 02/[address] Garcia shows normal left ventricular function, ejection fraction 65%, mild degree of concentric left ventricular hypertrophy, mildly enlarged right ventricle, moderately enlarged left atrium, mild degree of aortic stenosis with mean gradient of 12 mmHg, moderate calcification So it does not appear she had flash edema. She has a normal ventricle. She is at significant risk to have underlying coronary artery disease. I am not sure that we will be able to tune her up any better than where we are right now. I did hold the Xanax. I do not want her to go through Xanax withdrawal so I will cut it down to 2 a day. Family is aware of the plan. I have asked Cardiology to come and actually assist whether we can tune her up a little better to obtain her colonoscopy. cc: Rolando Braden MD
--- NOTE | 2017-03-03 18:11 | PROGRESS NOTE ---
DATE: 03/03/2017 SUBJECTIVE: I was asked to follow up on Ms. Arias late this afternoon in Dr. Lay's stead in regards to respiratory difficulties and possible congestive heart failure. She has recently been prepped to have a colonoscopy to further evaluate abdominal pain and anemia. Following prep she had some respiratory difficulty and received intravenous Lasix for pulmonary edema. When I see her she is lying flat in bed on nasal cannula oxygen. She denies shortness of breath presently. She relates that she "hurts all over" but more in her abdomen. OBJECTIVE: Blood pressure 150/43, heart rate 67, and regular. There is no significant jugular venous distention.Chest: Auscultation of chest reveals a few inspiratory crackles in the bases bilaterally. Cardiac exam: Reveals a regular rate and rhythm without appreciable murmur or gallop. There is no evidence of peripheral edema. LABORATORY DATA: Includes a hemoglobin of 7.2 with gradual decrease from 8.6 over several days. Hematocrit is 23.3 gradually decreased from 28 over several days. BUN 44, creatinine 2.1 which is stable. Troponin T less than 0.01. Chest x-ray demonstrates nonspecific bilateral infiltrates. Possibly pulmonary edema. Film is relatively under penetrated. Recent echocardiography reports normal left ventricular systolic function with ejection fraction 25% with mild concentric left hypertrophy, mildly enlarged right ventricle. Moderate left atrial enlargement. Mild aortic stenosis. No significant diastolic dysfunction by Doppler and moderate to severe pulmonary hypertension with systolic PA pressure estimated 75. IMPRESSION: 1. Recent respiratory difficulty. Possibly pulmonary edema. Agree with plans to diurese. Consider also the possibility of a component of atelectasis as patient has history of obstructive sleep apnea and is intolerant of BiPAP. She has been at bedrest for a good number of days now. 2. Abdominal discomfort. Etiology not clear. Symptoms may possibly be related to pancreatic mass. Given her history of peripheral vascular disease consider also the possibility of mesenteric ischemia. 3. Peripheral vascular disease. 4. Chronic kidney disease with creatinine clearance 25-30. 5. Anemia of chronic disease. 6. Diabetes mellitus type 2. 7. Hypertension. 8. Hyperlipidemia. RECOMMENDATIONS: 1. Agree with diuresis. 2. Pulmonary toilet and incentive spirometry. 3. Would not aggressively manage blood pressure and allow her to have higher pressure to permit better perfusion of diseased vessels. 4. She does not appear presently sufficiently fit from a respiratory standpoint to have colonoscopy. 5. Given her age and limited functional status, ultimate treatment options may very well be limited. The patient has some degree of dementia although she has been able to live with family and perform self-care. cc: Howard Loja MD
[2017-03-03] MEDS: NORVASC PO SCH (22:10)
[2017-03-03] MEDS: LIPITOR PO SCH (22:10)
[2017-03-03] MEDS: RESTORIL PO SCH (22:10)
--- NOTE | 2017-03-04 01:05 | PROGRESS NOTE ---
DATE: 03/03/2017 REFERRING PHYSICIAN: Dr. Rolando Braden. SUBJECTIVE: I was contacted by the nurse because the patient complained of shortness of breath and was holding her chest. When I entered the room, she was lying back in bed, but complained of shortness of breath and chest discomfort. An EKG was ordered, as was a blood gas, labs, CK, troponin, and chest x-ray. The patient complains of diffuse abdominal pain, stating that she hurts all over. PHYSICAL EXAMINATION: Vital Signs: Her blood pressure is 150/43, pulse 67, respirations 20, temperature of 99.1 degrees. HEENT: Negative for jaundice. Her oropharyngeal mucosa membranes are dry. Pulmonary: She has bilateral rales, with bibasilar crackles. Cardiovascular: Reveals a regular rate and rhythm, with no gallops or rubs. Abdominal: Reveals hypoactive bowel sounds. The abdomen is soft, but diffusely tender, with no rebound, but there is mild voluntary guarding. Extremities: Negative for cyanosis, clubbing, or edema. OBJECTIVE DATA: Reveals a hemoglobin of 7.2, with hematocrit of 23.3, and a white count of 9.98. She has 187,000 platelets. Her sodium is 140, potassium 4.3, chloride 100, CO2 26, BUN 44, creatinine 2.1, with a glucose of 82. Calcium is 9.4, magnesium 1.9, iron 49. IMPRESSION: 1. Recent inadequate bowel prep. 2. Persistent abdominal pain. 3. Nausea. 4. Anemia. 5. Constipation. RECOMMENDATION: 1. In light of the patient's change in pulmonary status, I will cancel her procedure. She will need full cardiopulmonary clearance prior to her endoscopy. 2. Continue proton pump inhibitor therapy. 3. Please see the esophagogastroduodenoscopy report for additional recommendations. 4. We will continue to follow along with you. cc: MD Rolando Daniels MD
--- NOTE | 2017-03-04 03:39 | OPERATIVE NOTE ---
PROCEDURE DATE: 03/02/2017 REFERRING PHYSICIAN: Rolando Braden M.D. INDICATION FOR PROCEDURE: 1. Nausea with vomiting. 2. Epigastric pain. 3. Anemia. 4. Constipation. PROCEDURE PERFORMED: Esophagogastroduodenoscopy. CONSENT: Informed consent was obtained from the patient and her family prior to the procedure. The risks, benefits, and alternatives were discussed with the patient and her daughter. MEDICATIONS: The patient received monitored anesthesia care. PERFORMING PHYSICIAN: Phyllis Singh M.D. ASSISTANTS: 1. ST. Keanu 2. Margoth Dockery RN. 3. Francisco Albrecht CRNA. 4. Duong Hughes M.D. (anesthesia). COMPLICATIONS: There were no complications. ESTIMATED BLOOD LOSS: None. SPECIMENS REMOVED: None. FINDINGS: After sedation was achieved, the upper endoscope was inserted to the 2nd portion of the duodenum. The hypopharynx and tubular esophagus appeared normal. The GE junction was measured at 40 cm from the incisors. There was a hiatal hernia that spanned from 40-45 cm. There was mild erosive gastritis in the gastric lumen. The fundus appeared normal. The pylorus appeared normal. The 1st and 2nd portions of the duodenum as well as the major papilla appeared grossly normal. After the exam was complete, the lumen was decompressed and the scope was removed without incident. IMPRESSION: 1. Hiatal hernia. 2. Mild erosive gastritis. RECOMMENDATION: 1. Obtain stool for H. pylori antigen. 2. Begin clear liquids. 3. Begin GoLYTELY bowel prep. 4. We will place the patient on the schedule for a repeat colonoscopy in the a.m. 5. To further evaluate her abdominal pain and other concerns, I would recheck a CT scan with oral contrast. 6. We will proceed with the colonoscopy as previously scheduled. cc: MD Rolando Daniels MD MTDD
--- NOTE | 2017-03-04 05:24 | EKG Report ---
Test Performed on : 03/03/2017 1:27:30 PM Test Reason : CP, SOB, new rales Blood Pressure : / mmHG Vent. Rate : 077 BPM Atrial Rate : 077 BPM P-R Int : 240 ms QRS Dur : 090 ms QT Int : 360 ms P-R-T Axes : 041 -12 056 degrees QTc Int : 407 ms Sinus rhythm. with 1st degree AV block. Septal infarct (cited on or before 01-MAR-2017) Abnormal ECG When compared with ECG of 01-MAR-2017 08:26, (Unconfirmed) Questionable change in initial forces of Anterior leads Confirmed by Delbert WADE, Rick Bahena ([id number]) on 03/05/2017 2:58:17 PM
[2017-03-04] MEDS: PROTONIX IV SCH ×2 (05:55→17:44)
[2017-03-04] MEDS: SODIUM CHLORIDE 0.9% INJ SCH ×2 (05:55→17:44)
[2017-03-04] MEDS: APRESOLINE PO SCH ×4 (05:55→21:37)
[2017-03-04] MEDS: MORPHINE IV PRN (05:59)
[2017-03-04] MEDS: HUMALOG SUBQ SCH ×5 (06:07→21:38)
[2017-03-04 06:11] LABS: MANUAL DIFF NEEDED? NO
[2017-03-04 06:20] LABS: BASO% 0.6 % (0.0-0.8); EOS# 0.17 X1000 (0.0-0.7); EOS% 2.7 % (0.0-10.0); HEMATOCRIT 24.5 % (37.0-47.0); HEMOGLOBIN 7.6 g/dL (12.0-16.0); LYMPH# 2.12 X1000 (1.2-3.4); LYMPH% 33.5 % (20.5-51.1); MCH 27.7 PG (27-31); MCV 89.4 FL (81-99); MONO# 0.79 X1000 (0.11-0.59); MONO% 12.5 % (1.7-9.3); MPV 11.1 FL (7.4-10.4); NEUT% 50.7 % (42.2-75.2); PLT 196 X1000 (130-400); RBC 2.74 XMIL (4.2-5.4)
[2017-03-04 07:23] LABS: CALCIUM 9.5 mg/dL (8.8-10.2); MAGNESIUM 1.8 mg/dL (1.5-2.7)
--- NOTE | 2017-03-04 08:07 | OPERATIVE NOTE ---
PROCEDURE DATE: 03/02/2017 INDICATION FOR PROCEDURE: 1. Nausea with vomiting. 2. Abdominal pain. 3. Anemia. 4. Constipation. PROCEDURE PERFORMED: None. FINDINGS: The patient was passing solid brown stool prior to insertion of the scope. The procedure was terminated. PERFORMING PHYSICIAN: Phyllis Singh M.D. ASSISTANTS: 1. Margoth Dockery RN. 2. ST. Keanu 3. Francisco Albrecht CRNA. 4. Duong Hughes M.D. (anesthesia). RECOMMENDATION: 1. We will place the patient on a GoLYTELY bowel prep. 2. We will plan to repeat the colonoscopy in the morning. cc: MD Rolando Daniels MD MTDEugene
[2017-03-04 08:08] LABS: ALLEN TEST YES; BE 8.2 mmoll (-3.0-3.0); BLOOD TYPE ARTERIAL; DRAW SITE L RADIAL; METHB 1.2 % (0.0-1.5); O2(CT) 8.7 mL/dL (15.0-23.0); PCO2(98.6) 49 mmHg (35-45); SAMPLE BLOOD; SAO2 81.3 % (95.0-100.0); THB 7.8 g/dL (11.5-17.4); pH(98.6) 7.44 (7.35-7.45)
[2017-03-04 08:12] LABS: MODALITY CANNULA; PO2(98.6) 41 mmHg (60-100)
[2017-03-04] MEDS: VELTASSA PO SCH (08:44)
[2017-03-04] MEDS: COREG PO SCH ×3 (08:45→21:38)
[2017-03-04] MEDS: ZOLOFT PO SCH (08:45)
[2017-03-04] MEDS: XANAX PO SCH ×4 (08:46→21:37)
[2017-03-04] MEDS: MIRALAX PO SCH ×3 (08:46→21:37)
--- NOTE | 2017-03-04 13:38 | PROGRESS NOTE ---
DATE: 03/04/2017 SUBJECTIVE: Ms. Arias reports she is doing fairly well today with the exception of generalized diffuse myalgias. She underwent her EGD today, but apparently her colonoscopy was unable to be performed secondary to persistent stool in the colon. OBJECTIVE: General: She is in no acute distress. Vital Signs: Temperature 97.7 degrees, blood pressure 136/43, heart rate 64. Cardiovascular: She is in a regular rate and rhythm. No murmurs. No S3. No lower extremity edema. Chest: Sounds relatively clear. No increased work of breathing. Abdomen: Soft. Mild diffuse tenderness. PERTINENT DATA: Her I's and O's for the course of the hospitalization have been significantly positive, but that takes into account her GoLYTELY prep. She was given some Lasix yesterday evening, specifically at 12:53 and then again a dose at 5 p.m. Laboratory data shows a sodium of 140, potassium 4, BUN 43, creatinine 1.9. proBNP is 4912. ASSESSMENT: 1. Likely diastolic heart failure. 2. Pancreatic head mass. PLAN: We will check a proBNP in the morning, considering that the patient already had diuretics x2 yesterday. The patient has significant comorbidities associated with any sort of invasive evaluation, specifically advanced age, dementia, and significant kidney disease as well as peripheral vascular disease. She does have some diastolic failure. We will continue to diuresis. I have spoken with the family about goals of care and the course of action. I will discuss the case with the primary team as well as the Gastroenterology Service regarding our overall endpoint. cc: Roberto Carlos Lay MD
--- NOTE | 2017-03-04 16:44 | PROGRESS NOTE ---
DATE: 03/04/2017 SUBJECTIVE: Today, Ms. Arias referred to be doing fine. She continues to have some shortness of breath. OBJECTIVE: Vital signs: Blood pressure is 123/48, pulse of 66, respirations 18, temperature 97.8 degrees. General: Ms. Arias is an 86-year-old female. She is in bed, not seemingly distressed. HEENT: Mucosa is pink and moist. Anicteric and acyanotic. Neck: Supple. Chest: Air entry is bilaterally reduced. There is diffuse bilateral posterior crepitations. Cardiovascular: Regular rate and rhythm. Abdomen: Soft. Cardiovascular: Regular rate and rhythm. There is about a 3/6 murmur and there is also positive JVD. Extremities: 1+ pedal edema. [employer] CLERK: Patient is awake, alert and oriented. LABORATORY DATA: WBC is 6.23, hemoglobin is 7.6, platelet count of 196,000. Chemistry is reviewed. Creatinine is 1.9, looks like that is patient's baseline. She had 1.9 in 2013 as well. Intake and output, 450 urine output was charted yesterday. A chest x-ray that was done yesterday shows worsening pulmonary vascular congestion with bilateral infiltrates suggestive of pulmonary edema. An echocardiogram which was done in on the shows ejection fraction of 65% with severe pulmonary hypertension. ASSESSMENT: 1. Acute pulmonary edema likely due to diastolic heart failure exacerbation. 2. Pancreatic mass suspicious for malignancy. 3. History of significant peripheral vascular disease. 4. Diabetes mellitus. 5. Chronic kidney disease stage 4. 6. Iron deficiency anemia. We would have to give the patient some iron once her fluid status has improved. PLAN: In general, I think Hugo is having still issues with breathing and chest exam is significant with crepitations. Patient also has JVD. think she is still in CHF. We are going continue with gentle diuresis. We will re-evaluate her tomorrow morning and then go from there. I have been notified that the GI procedures will be put on hold until the patient pulmonary status has been improved. My understanding is that her colonoscopy and EUS will be done on an outpatient basis. cc: Reginald Raygoza MD
[2017-03-04] MEDS: NORVASC PO SCH ×2 (19:53→21:37)
[2017-03-04] MEDS: LIPITOR PO SCH ×2 (19:53→21:37)
[2017-03-04] MEDS: RESTORIL PO SCH (21:37)
[2017-03-05] MEDS: APRESOLINE PO SCH ×3 (05:56→20:05)
[2017-03-05] MEDS: SODIUM CHLORIDE 0.9% INJ SCH ×2 (05:56→18:09)
[2017-03-05] MEDS: PROTONIX IV SCH ×2 (05:56→18:09)
[2017-03-05] MEDS: HUMALOG SUBQ SCH ×4 (06:11→20:05)
[2017-03-05 07:03] LABS: CALCIUM 8.9 mg/dL (8.8-10.2); POTASSIUM 3.8 mmol/L (3.5-5.1)
--- NOTE | 2017-03-05 07:19 | Diag Imaging Result Doc PS360 ---
CHEST-PORTABLE - 03/05/2017 INDICATION: dyspnea TECHNIQUE: COMPARISON: 03/03/2017 FINDINGS: Stable pacemaker and cardiomegaly. Stable bilateral infiltrates, at the right upper lobe and left hilum. Stable patchy infiltrates or atelectasis at the lung bases as well. No pneumothorax or large effusion. Pulmonary vascularity remains somewhat distended. IMPRESSION: No change from prior. Electronically signed by Heber Doll 03/05/2017 7:17 AM
[2017-03-05] MEDS: MIRALAX PO SCH ×2 (10:20→20:05)
[2017-03-05] MEDS: ZOLOFT PO SCH (10:21)
[2017-03-05] MEDS: XANAX PO SCH ×2 (10:21→20:05)
[2017-03-05] MEDS: COREG PO SCH ×2 (10:21→20:05)
[2017-03-05] MEDS: VELTASSA PO SCH (10:24)
--- NOTE | 2017-03-05 13:07 | PROGRESS NOTE ---
DATE: 03/05/2017 Today Ms. Arias refers to be doing a little better. Her breathing has improved a little bit. OBJECTIVE: Vital signs: Blood pressure is 143/54, pulse of 63, respirations 18, temperature 97.8 degrees. Patient is saturating 97% on 4 L of oxygen. General: Ms. Arias is an 86-year-old very sweet, old lady. She is in bed, no distress. HEENT: Mucosa is pink and moist. Anicteric. Acyanotic. Neck: Supple. Chest: Good air entry bilateral. There are still a few bibasilar crepitations. Cardiovascular: Regular rate and rhythm. There is a 3/6 murmur radiating to the carotid. 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 LABORATORY DATA: There is no lab work for today except for sodium is 139, potassium 3.8, chloride is 100. BUN is 39, that has improved from 43 yesterday. Creatinine is 1.8. It was 1.9 yesterday. Patient's ProBNP is also down to 2961. A chest x-ray which was done yesterday shows stable pacemaker and cardiomegaly, stable bilateral infiltrates at the right upper lobe and left hilum. There are patchy infiltrates or atelectasis at lung bases. No pneumothorax or large effusion. The pulmonary vascularity remains somewhat distended. ASSESSMENT: 1. Acute pulmonary edema likely due to diastolic heart failure. 2. Pancreatic mass suspicious for malignancy. 3. History of significant peripheral vascular disease. 4. Diabetes mellitus controlled. 5. CKD stage 4. 6. Iron deficiency. So in general I think Ms. Arias is doing a lot better. Oxygen level has remained stable and her breathing has also improved. We will give another dose of Lasix to improve on the pulmonary congestion. I think Ms. Arias is now almost ready for discharge. We will discharge her to a rehab for her to improve on physical strength. Hopefully after that, then she will be able to undergo the EUA in [place] with Dr. Anderson. My understanding is that the colonoscopy has been postponed and the EUA will also be done on outpatient basis but patient will need to have pulmonary status improved and also physical strength better before she undergoes all those testing. I anticipate that if patient is doing better by tomorrow we might be able to discharge her to the rehab. cc: Reginald Raygoza MD
[2017-03-05] MEDS ORDERED: LASIX IV ONE (13:13)
--- NOTE | 2017-03-05 13:30 | PROGRESS NOTE ---
DATE: 03/05/2017 SUBJECTIVE: Ms. Arias continues to have baseline complaints of mild diffuse abdominal pain as well as diffuse myalgias. She has no other issues. PHYSICAL EXAMINATION: Vital signs: Afebrile. Heart rates 66. Blood pressure 135/60. Her I's and O's are completely inaccurate given she had 7 unmeasured voids yesterday. General: No acute distress. Cardiovascular: Regular rate and rhythm. She has no murmurs. No S3. Chest Exam: Clear bilaterally. No increased work of breathing. Abdomen: Soft. Mild diffuse tenderness. No rebound or guarding. PERTINENT DATA: Her sodium is 139, potassium 3.8. BUN 39, creatinine 1.8. ProBNP is 2961 which is down from 4912 yesterday. ASSESSMENT: 1. Diastolic heart failure. 2. Pancreatic mass. PLAN: I will give her 1 more dose of IV Lasix today at a dose of 20 mg IV. I will defer further management to the hospitalist service as the plan now is to get the patient home for potential outpatient evaluation of the pancreatic head mass. cc: Roberto Carlos Lay MD
[2017-03-05] MEDS: LASIX IV SCH (14:14)
[2017-03-05] MEDS: NORVASC PO SCH (20:05)
[2017-03-05] MEDS: LIPITOR PO SCH (20:05)
[2017-03-05] MEDS: RESTORIL PO SCH (20:05)
[2017-03-06] MEDS: PROTONIX IV SCH (04:42)
--- NOTE | 2017-03-06 05:06 | PROGRESS NOTE ---
DATE: 03/05/2017 SUBJECTIVE: The patient states that she continues to have mild abdominal pain as well as fatigue and weakness. According to Dr. Raygoza's note, the plan is to discharge patient to rehab for physical therapy and strengthening. Currently, it has been determined that she is not stable from a cardiopulmonary standpoint to undergo anesthesia for endoscopy. She is improving considerably with the Lasix and pulmonary toilet. RECOMMENDATION: 1. Once the patient is stable from a cardiopulmonary standpoint at rehab, I will schedule the patient for outpatient EUS with FNA. 2. She also needs a colonoscopy given her persistent abdominal pain and change in bowel habits, which have been associated with weight loss. I will ask Dr. Andrew if he would be willing to perform a colonoscopy at the same time in order to minimize the number of times at this frail, 86-year-old patient has to be sedated. If he is unwilling to do so, I will schedule the procedure and perform it myself at some point in the near future. 3. From a GI standpoint, she is stable for discharge to rehab. 4. Dr. Carmine Pitts will be covering our service until March 11. 5. I had a lengthy discussion with the family spending approximately 15 minutes at bedside discussing her care. cc: MD Reginald Daniels MD Peter Johnson, MD Heather Shah, MD Henry S Beeler, MD
[2017-03-06] MEDS: APRESOLINE PO SCH ×2 (05:52→12:18)
[2017-03-06] MEDS: HUMALOG SUBQ SCH ×3 (06:14→15:25)
--- NOTE | 2017-03-06 06:19 | Diag Imaging Result Doc PS360 ---
EXAM: CHEST-PORTABLE HISTORY: dyspnea TECHNIQUE: Portable COMPARISON: 03/05/2017 FINDINGS: There is a left-sided pacemaker. The lungs are well expanded. The heart isn't enlarged. There are increased interstitial markings throughout the lungs. These are most pronounced in the mid lower right lung. Questionable tiny effusions. IMPRESSION: No significant interval improvement. Electronically signed by Lebron Rolon 03/06/2017 6:17 AM
[2017-03-06 06:50] LABS: MANUAL DIFF NEEDED? NO
[2017-03-06 07:00] LABS: BASO% 0.3 % (0.0-0.8); EOS# 0.18 X1000 (0.0-0.7); EOS% 2.6 % (0.0-10.0); HEMATOCRIT 26.4 % (37.0-47.0); HEMOGLOBIN 8.1 g/dL (12.0-16.0); IMM GRAN# 0.02 X1000 (0.0-0.04); IMM GRAN% 0.3 % (0.0-0.5); LYMPH# 1.22 X1000 (1.2-3.4); LYMPH% 17.9 % (20.5-51.1); MCH 27.8 PG (27-31); MCHC 30.7 g/dL (33-37); MCV 90.7 FL (81-99); MONO% 10.3 % (1.7-9.3); MPV 10.8 FL (7.4-10.4); NEUT% 68.6 % (42.2-75.2); PLT 198 X1000 (130-400); RBC 2.91 XMIL (4.2-5.4)
[2017-03-06 07:14] LABS: CALCIUM 9.1 mg/dL (8.8-10.2); POTASSIUM 3.7 mmol/L (3.5-5.1)
[2017-03-06] MEDS: LASIX IV SCH ×2 (09:25→13:59)
[2017-03-06] MEDS: MIRALAX PO SCH (09:28)
[2017-03-06] MEDS: ZOLOFT PO SCH (09:28)
[2017-03-06] MEDS: COREG PO SCH (09:28)
[2017-03-06] MEDS: VELTASSA PO SCH (09:28)
[2017-03-06] MEDS: XANAX PO SCH (09:28)
[2017-03-06 12:06] VITALS: BP 150/58
[2017-03-06] MEDS: TYLENOL PO PRN (13:59)
--- NOTE | 2017-03-06 14:17 | DISCHARGE SUMMARY ---
ADMISSION DATE: 02/20/2017 DISCHARGE DATE: 03/06/2017 DISPOSITION: [facility] [place]. FOLLOWUP: 1. Dr. Anderson in [place]. 2. Dr. Lay. CONSULTATION DURING THIS ADMISSION: 1. GI was consulted. Patient was seen by Dr. Singh. 2. Cardiology was consulted. Patient was seen by Dr. Lay and Dr. Loja. INVASIVE PROCEDURES DONE DURING THIS ADMISSION: An EGD was done by Dr. Singh. It shows hiatal hernia, mild erosive gastritis. A colonoscopy was attempted but the patient did not have a very good bowel prep so it was aborted. ADMISSION DIAGNOSES: 1. Abdominal pain likely secondary to pancreatitis/pancreatic mass. 2. Altered sensorium. 3. Diabetes mellitus. 4. Congestive heart failure. 5. Chronic kidney disease stage 3 to 4. 6. Status post pacemaker. DIAGNOSES AT THE TIME OF DISCHARGE: 1. Acute pulmonary edema likely due to diastolic heart failure. 2. Pancreatic mass suspicious for malignancy. 3. History of significant peripheral vascular disease. 4. Diabetes mellitus. 5. Chronic kidney disease stage 4. 6. Iron deficiency. DISCHARGE MEDICATIONS: 1. Alprazolam 0.25 t.i.d. 2. Iron. 3. Aspirin 81 mg daily. 4. Atorvastatin 10 mg daily. 5. Sertraline 50 mg daily. 6. linagliptin 5 mg at bedtime. 7. Carvedilol 25 mg b.i.d. 8. Amlodipine 5 mg daily. 9. Furosemide 20 mg b.i.d. MEDICATION THAT HAS BEEN DISCONTINUED: 1. Clopidogrel. 2. Glipizide. 3. Temazepam. MEDICATION THAT HAS BEEN CHANGED: Furosemide has been reduced from 40 to 20 b.i.d. IMAGING STUDIES: 1. Of significance, a CT scan of the abdomen and pelvic was done on presentation which showed rectal fecal impaction. Questionable low dense mass near the pancreas. 2. A CT scan of the head was done which showed chronic appearing changes. No acute intracranial pathology. 3. A repeat CT scan of the abdomen and pelvic was done. It shows nonspecific focal small thickening involving the hepatic flexure. 4. A chest x-ray was done on the which shows worsening pulmonary vascular congestion and bilateral infiltrates. A repeat chest x-ray done today shows some interstitial markings but there has been some improvement. PRESENTING COMPLAINT: Abdominal pain. HISTORY OF PRESENTING COMPLAINT: Ms. Arias is an 86-year-old very pleasant old lady who presented to the emergency department on 02/20/2017 due to abdominal pain. Upon presentation, patient was evaluated. Initial CT scan showed some suspicious mass around the pancreas. The patient was some admitted for further medical care. HOSPITAL COURSE: GI was consulted. There was a decision to do an EGD and colonoscopy as part of the workup for this pancreatic mass. However the EGD was successful but colonoscopy had to be aborted because of poor preparation. During the hospital stay, patient also developed fluid overload which Cardiology was consulted. Progressively the respiratory status got improved on diuretic therapy. A decision was made in consultation with all the providers that Ms. Arias is too elderly for any procedure to be done in the acute setting and that the pulmonary status needs to be improved before colonoscopy or the EUS will be done. Dr. Singh made an appointment with Dr. Newman in [place] for the patient to be seen on outpatient basis for EUS to be done. Over the course of the last 2-3 days Ms. Arias has been doing fine. Respiratory status improved and she is able to participate with physical therapy here in the hospital. She seems to be a lot more stable so we are going to discharge her to a rehab to continue with the physical rehabilitation. At the time of discharge, there are not any pending labs or imaging studies. Today her vitals, blood pressure is 150/58, pulse is 68, respirations 18, temperature 98.2 degrees. Physical exam is unremarkable. DISPOSITION: [facility] [place]. Activity as tolerated. Diet: Healthy heart diet. Followup outlined above. Time spent for discharge is 37 minutes. Orientation: Patient is supposed to repeat her BNP in 1 week and follow up with her primary care on that. cc: MD DEVIN Stroud
== END 2017-03-06 16:06 ==
LOC: ED 12:35 → 4N 17:43 → SUATTDRO 17:43
PROVIDERS: ATTEND Internal Medicine